=== PATIENT | female | born 2000 | race Caucasian/White ===

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

== ENCOUNTER 2020-04-28 06:59 | Emergency (ER) | payer SELFPAY ==
[2020-04-28 07:35] LABS: Absolute Lymphocytes (CBC) 1.3 K/uL (0.7-4.9); Basophils % 0.4 % (0-1.3); Hematocrit 35.2 % (36.0-45.0); Lymphocytes % 17.8 % (15.3-44.8); MPV 9.5 fL (7.6-11.3)
[2020-04-28 07:41] LABS: Urine Blood TRACE (NEG); Urine Glucose NEGATIVE (NEG); Urine Protein 2+ (NEG); Urine pH 5.5 (5.0-7.0)
[2020-04-28 07:52] LABS: ALT/SGPT 21 U/L (12-78); AST/SGOT 9 U/L (15-37); Albumin 3.5 g/dL (3.4-5.0); Alkaline Phosphatase 69 U/L (45-117); BUN Blood Urea Nitrogen 6 mg/dL (7-18); Bicarbonate 26 mmol/L (21-32); Bilirubin Direct 0.1 mg/dL (0-0.2); Bilirubin Total 0.3 mg/dL (0.2-1.0); Glucose Level 93 mg/dL (74-106); Lipase 45 U/L (73-393); Protein, Total 7.7 g/dL (6.4-8.2); Sodium Level 140 mmol/L (136-145)
[2020-04-28 09:00] LABS: Urine Bacteria <20 /HPF (<20); Urine Culture Reflex Order NOT NEEDED; Urine Mucus 2+ /HPF (NONE SEEN)
--- NOTE | 2020-04-28 09:01 | RAD REPORT ---
EXAM DESCRIPTION: CTAbdomen Pelvis W Contrast - 04/28/2020 7:49 am CLINICAL HISTORY: Abdominal pain. right sided abd pain COMPARISON: No comparisons TECHNIQUE: Biphasic CT imaging of the abdomen and pelvis was performed with 100 ml non-ionic IV cont rast. All CT scans are performed using dose optimization technique as appropriate and may include automated exposure control or mA/KV adjustment according to patient size. FINDINGS: The lung bases are clear. The liver, spleen, pancreas, adrenal glands and left kidney are within normal limits. Mild edema invo lves the right kidney. No hydronephrosis. No bowel obstruction, free air, intra-abdominal free fluid or abscess. The appendix is normal. No e vidence of significant lymphadenopathy. Mild pelvic free fluid. No suspicious bony findings. IMPRESSION: Mild right-sided pyelonephritis suspected.
--- NOTE | 2020-04-28 09:23 | ER ---
Nurse's Notes [facility] Name: Shani Villafana Age: 19 yrs Sex: Female : 2000 Arrival Date: 04/28/2020 Time: 07:03 Bed 5 Private MD: Diagnosis: Urinary tract infection, site not specified Presentation: 04/28 07:14 Chief complaint: Patient states: fever,low back pain radiating to RUQ X 3 days. Initial iw Sepsis Screen: Does the patient meet any 2 criteria? No. Patient's initial sepsis screen is negative. Does the patient have a suspected source of infection? No. Patient's initial sepsis screen is negative. Risk Assessment: Do you want to hurt yourself or someone else? Patient reports no desire to harm self or others. 07:14 Method Of Arrival: Ambulatory iw 07:14 Acuity: ЕКАТЕРИНА 3 iw 09:43 Coronavirus screen: Client denies travel out of the [place] in the last 14 days. At this jr10 time, the client does not indicate any symptoms associated with coronavirus-19. Ebola Screen: No symptoms or risks identified at this time. Onset of symptoms was April 25, 2020. 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 - Social history:: Smoking status: Patient denies any tobacco usage or history of. - Family history:: not pertinent. - Hospitalizations: : No recent hospitalization is reported. Screenin:34 Abuse screen: Denies threats or abuse. Denies injuries from another. Nutritional jr10 screening: No deficits noted. Tuberculosis screening: No symptoms or risk factors identified. Fall Risk None identified. Assessment: 07:31 General: Appears in no apparent distress. Behavior is calm, cooperative, appropriate jr10 for age. Pain: Complains of pain in right mid back, right low back and right lower quadrant Pain began Monday. Neuro: No deficits noted. Cardiovascular: No deficits noted. Respiratory: No deficits noted. Airway is patent Respiratory effort is even, unlabored, Respiratory pattern is regular, symmetrical. GI: Abdomen is non-distended, Bowel sounds present X 4 quads. Abd is soft Abdomen is tender to palpation in right lower quadrant Reports nausea, Patient currently denies diarrhea, vomiting, pt reports pain in right lower back that radiates to right lower abd that started on Monday; reports fever of 104.1 on Monday; denies dysuria, reports dark urine. : No deficits noted. : No deficits noted. No signs and/or symptoms were reported regarding the genitourinary system. EENT: No deficits noted. EENT: No signs and/or symptoms were reported regarding the EENT system. Derm: No deficits noted. No signs and/or symptoms reported regarding the dermatologic system. Musculoskeletal: No deficits noted. No signs and/or symptoms reported regarding the musculoskeletal system. 07:33 Reassessment: US at bedside. jr10 Vital Signs: 07:16 BP 117 / 82; Pulse 83; Resp 16; Temp 98.8; Pulse Ox 100% on R/A; Weight 49.9 kg; Height iw 5 ft. 4 in. (162.56 cm); 09:16 BP 110 / 93; Pulse 68; Resp 17; Pulse Ox 100% on R/A; jr10 07:16 Body Mass Index 18.88 (49.90 kg, 162.56 cm) iw ED Course: 07:03 Patient arrived in ED. mr 07:06 Juan Spears MD is Attending Physician. rn 07:07 Danyel Jacobs, RN is Primary Nurse. bp 07:16 Triage completed. iw 07:17 Arm band placed on. iw 07:34 Patient has correct armband on for positive identification. Pulse ox on. NIBP on. jr10 07:34 No provider procedures requiring assistance completed. Inserted saline lock: 20 gauge jr10 in right antecubital area, using aseptic technique. ,using aseptic technique. started via KJ, PCT Blood collected. IV is patent, is intact, Flushed. 07:49 CT Abd/Pelvis - IV Contrast Only In Process Unspecified. EDMS 08:06 US Abdomen Limited In Process Unspecified. EDMS 08:22 Primary Nurse role handed off by Danyel Jacobs, RN jr10 08:22 Mary Zarate, RN is Primary Nurse. jr10 09:41 IV discontinued, intact, bleeding controlled, No redness/swelling at site. Pressure jr10 dressing applied. Administered Medications: 09:41 Drug: Cipro 500 mg Route: PO; jr10 Outcome: 09:23 Discharge ordered by . rn 09:42 Discharged to home ambulatory. jr10 09:42 Condition: good 09:42 Discharge instructions given to patient, Instructed on discharge instructions, follow up and referral plans. Demonstrated understanding of instructions, follow-up care, medications, Prescriptions given X 1. 09:46 Patient left the ED. jr10 Signatures: Dispatcher [employer] Elizabeth Flores Irene, RN Juan Valente MD MD rn Peltier, Brian, RN Mary Mane, RN RN jr10 Corrections: (The following items were deleted from the chart) 07:45 07:34 Inserted saline lock: 22 gauge in right antecubital area, using aseptic jr10 technique. ,using aseptic technique. started via KJ, PCT Blood collected. IV is patent, is intact, Flushed jr10 09:46 09:43 Onset of symptoms was April 27, 2020 jr10 jr10
--- NOTE | 2020-04-28 09:23 | EDPHYS ---
Physician Documentation [facility] Name: Shani Villafana Age: 19 yrs Sex: Female : 2000 Arrival Date: 04/28/2020 Time: 07:03 Bed 5 Private MD: ED Physician Juan Spears HPI: 04/28 07:15 This 19 yrs old Female presents to ER via Unassigned with complaints of rn Abdominal Pain, Nausea, Fever. 07:15 The patient presents with abdominal pain in the right upper quadrant, right lower rn quadrant. Onset: The symptoms/episode began/occurred 2 day(s) ago. The symptoms do not radiate. Associated signs and symptoms: Pertinent positives: anorexia, fever, Pertinent negatives: nausea and vomiting, blood in stools, constipation, diarrhea, dysuria, fever, hematuria, palpitations, shortness of breath, vaginal discharge, vomiting. The symptoms are described as crampy, sharp. Modifying factors: The symptoms are alleviated by nothing, the symptoms are aggravated by movement, touching the area. Severity of pain: At its worst the pain was moderate in the emergency department the pain has improved. The patient has not experienced similar symptoms in the past. The patient has not recently seen a physician. REports 2 days of right sided abd pain, + fever, + decreased appetite, no vomiting/diarrhea/urinary symptoms/vaginal discharge. No trauma. Had baby 1 year ago, reports family hx of gallstones. . 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 - Social history:: Smoking status: Patient denies any tobacco usage or history of. - Family history:: not pertinent. - Hospitalizations: : No recent hospitalization is reported. ROS: 07:15 Constitutional: + fever Eyes: Negative for injury, pain, redness, and discharge, Neck: rn Negative for injury, pain, and swelling, Cardiovascular: Negative for chest pain, palpitations, and edema, Respiratory: Negative for shortness of breath, cough, wheezing, and pleuritic chest pain, Abdomen/GI: + abd pain : Negative for injury, bleeding, discharge, and swelling, MS/Extremity: Negative for injury and deformity, Skin: Negative for injury, rash, and discoloration, Neuro: Negative for headache, weakness, numbness, tingling, and seizure. Exam: 07:15 Constitutional: This is a well developed, well nourished patient who is awake, alert, rn and in no acute distress. Ambulatory. Head/Face: Normocephalic, atraumatic. Cardiovascular: Regular rate and rhythm. No pulse deficits. Respiratory: No increased work of breathing, no retractions or nasal flaring. Abdomen/GI: soft, mild RUQ and RLQ tenderness, no rebound Skin: Warm, dry MS/ Extremity: Pulses equal, no cyanosis. Neurovascular intact. Full, normal range of motion. Equal circumference. Neuro: Awake and alert, GCS 15 Vital Signs: 07:16 BP 117 / 82; Pulse 83; Resp 16; Temp 98.8; Pulse Ox 100% on R/A; Weight 49.9 kg; Height iw 5 ft. 4 in. (162.56 cm); 09:16 BP 110 / 93; Pulse 68; Resp 17; Pulse Ox 100% on R/A; jr10 07:16 Body Mass Index 18.88 (49.90 kg, 162.56 cm) iw MDM: 07:06 Patient medically screened. rn 09:20 Differential diagnosis: appendicitis, Endometriosis, non-specific abd pain, rn Pyelonephritis, Ureterolithiasis, urinary tract infection, ovarian cyst. Data reviewed: vital signs, nurses notes, lab test result(s), radiologic studies, CT scan, ultrasound, and as a result, I will discharge patient. Counseling: I had a detailed discussion with the patient and/or guardian regarding: the historical points, exam findings, and any diagnostic results supporting the discharge/admit diagnosis, lab results, radiology results, the need for outpatient follow up, to return to the emergency department if symptoms worsen or persist or if there are any questions or concerns that arise at home. Response to treatment: the patient's symptoms have mildly improved after treatment, and as a result, I will discharge patient. Special discussion: Based on the patient's Hx, exam, and Dx evaluation, there is no indication for emergent surgery or inpatient Tx. It is understood by the patient/guardian that if the Sx's persist or worsen they need to return immediately for re-evaluation. I discussed with the patient/guardian in detail that at this point there is no indication for admission to the hospital. It is understood, however, that if the symptoms persist or worsen the patient needs to return immediately for re-evaluation. ED course: CT and bloodwork no acute findings. Per radiology, CT shows normal appendix, mild pelvic free fluid, and possible pyelo. Patient reports increased urination frequency, will treat with abx and dc home. Story sounds more like ruptured ovarian cyst though, with pain worse yesterday and now improving, given right sided symptoms, and mild free fluid. Given bloodwork results and ct results. . 04/28 07:14 Order name: Basic Metabolic Panel; Complete Time: 08:07 rn 04/28 07:14 Order name: CBC with Diff; Complete Time: 08:07 rn 04/28 07:14 Order name: Hepatic Function; Complete Time: 08:07 rn 04/28 07:14 Order name: Lipase; Complete Time: 08:07 rn 04/28 07:14 Order name: Urine Microscopic Only; Complete Time: 09:14 rn 04/28 07:36 Order name: Urine Dipstick--Ancillary (enter results) bd 04/28 07:14 Order name: IV Saline Lock; Complete Time: 07:36 rn 04/28 07:14 Order name: CT Abd/Pelvis - IV Contrast Only; Complete Time: 09:14 rn 04/28 07:14 Order name: US Abdomen Limited rn 04/28 07:36 Order name: Urine --Ancillary (enter results) bd 04/28 07:37 Order name: Urine Dipstick-Ancillary; Complete Time: 08:07 EDSD 04/28 07:37 Order name: Urine --Ancillary; Complete Time: 08:07 EDSD 04/28 08:00 Order name: CREATININE WHOLE BLOOD; Complete Time: 08:07 EDSD 04/28 07:14 Order name: Labs collected and sent; Complete Time: 07:36 rn 04/28 07:14 Order name: Urine Test (obtain specimen); Complete Time: 07:36 rn 04/28 07:14 Order name: Urine Dipstick-Ancillary (obtain specimen); Complete Time: 07:36 rn Administered Medications: 09:41 Drug: Cipro 500 mg Route: PO; jr10 Disposition: 04/28/20 09:23 Discharged to Home. Impression: Urinary tract infection, site not specified. - Condition is Stable. - Discharge Instructions: Ovarian Cyst, Urinary Tract Infection, Adult. - Prescriptions for Cipro 500 mg Oral Tablet - take 1 tablet by ORAL route every 12 hours for 10 days; 20 tablet. - Medication Reconciliation Form, Thank You Letter, Antibiotic Education, Prescription Opioid Use form. - Follow up: Private Physician; When: As needed; Reason: Recheck today's complaints, Re-evaluation by your physician. - Problem is new. - Symptoms have improved. Signatures: Dispatcher [employer] EDMS Yesika Villafana RN RN iw Nieto, Roman, MD MD rn Rivera, Jessica, RN RN jr10 Corrections: (The following items were deleted from the chart) 09:46 09:23 04/28/2020 09:23 Discharged to Home. Impression: Urinary tract infection, site jr10 not specified. Condition is Stable. Forms are Medication Reconciliation Form, Thank You Letter, Antibiotic Education, Prescription Opioid Use. Follow up: Private Physician; When: As needed; Reason: Recheck today's complaints, Re-evaluation by your physician. Problem is new. Symptoms have improved. rn
--- NOTE | 2020-04-28 09:32 | RAD REPORT ---
EXAM DESCRIPTION: US - Abdomen Exam Limited - 04/28/2020 8:06 am CLINICAL HISTORY: right sided abd pain Abdominal pain COMPARISON: No comparisons FINDINGS: The gallbladder demonstrates no gallstones. No pericholecystic fluid or gallbladder wall t hickening. The common bile duct is normal measuring 3 mm. The liver demonstrates no findings of intrahepatic biliary dilatation. IMPRESSION: Unremarkable examination.
[2020-04-28] MEDS ORDERED: CIPROFLOXACIN HCL 500 MG TAB ONE (09:43)
[2020-04-28 09:51] VITALS: TEMP 98.8; O2SAT 100
[2020-04-28 09:52] VITALS: BP 110/93
== END 2020-04-28 09:46 | disposition home or self-care (01) ==
LOC: ER 06:59
DX: N39.0 Urinary tract infection, site not specified (principal)
CPT/HCPCS: 36415; 74177; 76705; 80048; 80076; 81003; 81015; 81025; 82565; 83690; 85025; 99284; Q9967

== ENCOUNTER 2020-10-02 17:32 | Emergency (ER) | payer SELFPAY ==
[2020-10-02] MEDS ORDERED: ACETAMINOPHEN 325 MG TABLET ONE (18:30)
--- NOTE | 2020-10-02 19:50 | EDPHYS ---
Physician Documentation [facility] Name: Shani Villafana Age: 20 yrs Sex: Female : 2000 Arrival Date: 10/02/2020 Time: 17:34 Bed Waiting Private MD: ED Physician Jesus Agosto HPI: 10/02 19:44 This 20 yrs old Female presents to ER via Ambulatory with complaints of Sore mh7 Throat. 19:44 The patient presents with sore throat. mh7 19:44 The patient describes throat pain as constant. Onset: The symptoms/episode mh7 began/occurred last night. Severity of symptoms: At their worst the symptoms were moderate, last night, in the emergency department the symptoms have improved, markedly. Modifying factors: The symptoms are alleviated by over the counter medications, Tylenol, the symptoms are aggravated by nothing, Patient's oral intake status: good. Associated signs and symptoms: Pertinent positives: fever, Sore throat Pertinent negatives chest pain, chills, cough, diarrhea, dysphagia, earache, flu-like symptoms, headache, nausea, rhinorrhea, shortness of breath, vomiting. 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 - Social history:: Smoking status: Patient denies any tobacco usage or history of. ROS: 19:44 Eyes: Negative for injury, pain, redness, and discharge, Neck: Negative for injury, mh7 pain, and swelling, Cardiovascular: Negative for chest pain, palpitations, and edema, Respiratory: Negative for shortness of breath, cough, wheezing, and pleuritic chest pain, Abdomen/GI: Negative for abdominal pain, nausea, vomiting, diarrhea, and constipation, Back: Negative for injury and pain, : Negative for injury, bleeding, discharge, and swelling, MS/Extremity: Negative for injury and deformity, Skin: Negative for injury, rash, and discoloration, Neuro: Negative for headache, weakness, numbness, tingling, and seizure, Psych: Negative for depression, anxiety, suicide ideation, homicidal ideation, and hallucinations, Allergy/Immunology: Negative for hives, rash, and allergies, Endocrine: Negative for neck swelling, polydipsia, polyuria, polyphagia, and marked weight changes, Hematologic/Lymphatic: Negative for swollen nodes, abnormal bleeding, and unusual bruising. Exam: 19:44 Constitutional: This is a well developed, well nourished patient who is awake, alert, mh7 and in no acute distress. Head/Face: Normocephalic, atraumatic. Eyes: Pupils equal round and reactive to light, extra-ocular motions intact. Lids and lashes normal. Conjunctiva and sclera are non-icteric and not injected. Cornea within normal limits. Periorbital areas with no swelling, redness, or edema. 19:44 Neck: Trachea midline, no thyromegaly or masses palpated, and no cervical lymphadenopathy. Supple, full range of motion without nuchal rigidity, or vertebral point tenderness. No Meningismus. Chest/axilla: Normal chest wall appearance and motion. Nontender with no deformity. No lesions are appreciated. Cardiovascular: Regular rate and rhythm with a normal S1 and S2. No gallops, murmurs, or rubs. Normal PMI, no JVD. No pulse deficits. Respiratory: Lungs have equal breath sounds bilaterally, clear to auscultation and percussion. No rales, rhonchi or wheezes noted. No increased work of breathing, no retractions or nasal flaring. Abdomen/GI: Soft, non-tender, with normal bowel sounds. No distension or tympany. No guarding or rebound. No evidence of tenderness throughout. Back: No spinal tenderness. No costovertebral tenderness. Full range of motion. Skin: Warm, dry with normal turgor. Normal color with no rashes, no lesions, and no evidence of cellulitis. MS/ Extremity: Pulses equal, no cyanosis. Neurovascular intact. Full, normal range of motion. Neuro: Awake and alert, GCS 15, oriented to person, place, time, and situation. Cranial nerves II-XII grossly intact. Motor strength 5/5 in all extremities. Sensory grossly intact. Cerebellar exam normal. Normal gait. Psych: Awake, alert, with orientation to person, place and time. Behavior, mood, and affect are within normal limits. 19:44 ENT: External ear(s): are unremarkable, Ear canal(s): are normal, TM's: are normal, Nose: is normal, Mouth: is normal, Posterior pharynx: Airway: normal, Tonsils: bilaterally enlarged, with erythema, with exudate, Uvula: normal, swelling, is not appreciated, erythema, that is moderate, exudate, that is moderate, peritonsillar mass, is not appreciated, pooling of secretions, is not appreciated, Dental exam: normal, Voice: is normal, Breath odor: is normal. Vital Signs: 18:06 BP 117 / 56; Pulse 111; Resp 16 S; Temp 97.2(TE); Pulse Ox 99% on R/A; Weight 48.08 kg ca1 (R); Height 5 ft. 4 in. (162.56 cm) (R); Pain 0/10; 18:11 Temp 101.4(O); ca1 19:37 BP 110 / 65; Pulse 94; Resp 16 S; Temp 98.8(O); Pulse Ox 99% on R/A; ca1 18:06 Body Mass Index 18.19 (48.08 kg, 162.56 cm) ca1 MDM: 19:44 Differential diagnosis: cocksackie virus, group A strep tonsillitis, influenza, mh7 laryngitis, pharyngitis, tonsillitis, viral syndrome. Data reviewed: vital signs, nurses notes, lab test result(s), Rapid Strep. Data interpreted: Pulse oximetry: on room air is 99 %. Interpretation: normal. Counseling: I had a detailed discussion with the patient and/or guardian regarding: the historical points, exam findings, and any diagnostic results supporting the discharge/admit diagnosis, lab results, the need for outpatient follow up, to return to the emergency department if symptoms worsen or persist or if there are any questions or concerns that arise at home. Response to treatment: the patient's symptoms have markedly improved after treatment. 19:49 Patient medically screened. mh7 10/02 18:08 Order name: Strep ca1 10/02 18:09 Order name: Group A Streptococcus Rapid Sc; Complete Time: 19:43 EDMS Administered Medications: 18:16 Drug: Tylenol 650 mg Route: PO; ca1 19:37 Follow up: Response: No adverse reaction; Temperature is decreased ca1 19:46 Drug: Bicillin L-A 1.2 million units Route: IM; Site: left gluteus; ca1 20:02 Follow up: Response: No adverse reaction ca1 Disposition: 10/02/20 19:49 Discharged to Home. Impression: Strep Pharyngitis. - Condition is Stable. - Discharge Instructions: Strep Throat, [id number]. - Medication Reconciliation Form, Thank You Letter, Antibiotic Education, Prescription Opioid Use form. - Follow up: Private Physician; When: 1 - 2 days; Reason: Worsening of condition, Recheck today's complaints, Continuance of care, Re-evaluation by your physician. - Problem is new. - Symptoms have improved. Signatures: Dispatcher [employer] EDMS Brisa Barrios RN RN ca1 Jesus Agosto MD MD mh7 Corrections: (The following items were deleted from the chart) 20:02 19:49 10/02/2020 19:49 Discharged to Home. Impression: Strep Pharyngitis. Condition is ca1 Stable. Forms are Medication Reconciliation Form, Thank You Letter, Antibiotic Education, Prescription Opioid Use. Follow up: Private Physician; When: 1 - 2 days; Reason: Worsening of condition, Recheck today's complaints, Continuance of care, Re-evaluation by your physician. Problem is new. Symptoms have improved. mh7
--- NOTE | 2020-10-02 19:50 | ER ---
Nurse's Notes [facility] Name: Shani Villafana Age: 20 yrs Sex: Female : 2000 Arrival Date: 10/02/2020 Time: 17:34 Bed Waiting Private MD: Diagnosis: Strep Pharyngitis Presentation: 10/02 18:06 Chief complaint: Patient states: Sore throat with pus pockets since last night. Fever ca1 last night. Coronavirus screen: Client denies travel out of the [place] in the last 14 days. fever, sore throat, Client presents with at least one sign or symptom that may indicate coronavirus-19. Standard/surgical mask placed on the client. Provider contacted for isolation considerations. Ebola Screen: Patient negative for fever greater than or equal to 101.5 degrees Fahrenheit, and additional compatible Ebola Virus Disease symptoms Patient denies exposure to infectious person. Patient denies travel to an Ebola-affected area in the 21 days before illness onset. No symptoms or risks identified at this time. Initial Sepsis Screen: Does the patient meet any 2 criteria? No. Patient's initial sepsis screen is negative. Does the patient have a suspected source of infection? No. Patient's initial sepsis screen is negative. Risk Assessment: Do you want to hurt yourself or someone else? Patient reports no desire to harm self or others. Onset of symptoms was October 01, 2020. 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 - Social history:: Smoking status: Patient denies any tobacco usage or history of. Screenin:15 Abuse screen: Denies threats or abuse. Denies injuries from another. Nutritional ca1 screening: No deficits noted. Tuberculosis screening: No symptoms or risk factors identified. Fall Risk None identified. Assessment: 18:15 General: Appears in no apparent distress. comfortable, Behavior is calm, cooperative, ca1 appropriate for age. General: Reports fever for 1-2 days. Pain: Complains of pain in throat Pain currently is 5 out of 10 on a pain scale. Pain began 1 day ago. Neuro: Level of Consciousness is awake, alert, obeys commands, Oriented to person, place, time, situation. Respiratory: Airway is patent Respiratory effort is even, unlabored, Breath sounds are clear bilaterally. EENT: Throat is reddened has patchy exudate bilaterally. Derm: Skin is intact, is healthy with good turgor, Skin is pink, warm \T\ dry. Musculoskeletal: Circulation, motion, and sensation intact. Capillary refill < 3 seconds. Vital Signs: 18:06 BP 117 / 56; Pulse 111; Resp 16 S; Temp 97.2(TE); Pulse Ox 99% on R/A; Weight 48.08 kg ca1 (R); Height 5 ft. 4 in. (162.56 cm) (R); Pain 0/10; 18:11 Temp 101.4(O); ca1 19:37 BP 110 / 65; Pulse 94; Resp 16 S; Temp 98.8(O); Pulse Ox 99% on R/A; ca1 18:06 Body Mass Index 18.19 (48.08 kg, 162.56 cm) ca1 ED Course: 17:34 Patient arrived in ED. as 18:08 Triage completed. ca1 18:08 Arm band placed on right wrist. ca1 18:10 Strep Sent. ca1 18:15 Patient has correct armband on for positive identification. ca1 19:43 Jesus Agosto MD is Attending Physician. 7 20:02 No provider procedures requiring assistance completed. Patient did not have IV access ca1 during this emergency room visit. Administered Medications: 18:16 Drug: Tylenol 650 mg Route: PO; ca1 19:37 Follow up: Response: No adverse reaction; Temperature is decreased ca1 19:46 Drug: Bicillin L-A 1.2 million units Route: IM; Site: left gluteus; ca1 20:02 Follow up: Response: No adverse reaction ca1 Outcome: 19:49 Discharge ordered by . mh7 20:02 Discharged to home ambulatory. ca1 20:02 Condition: stable 20:02 Discharge instructions given to patient, Instructed on discharge instructions, follow up and referral plans. Demonstrated understanding of instructions, follow-up care. 20:02 Patient left the ED. ca1 Signatures: Melisa Saunders Cheryl, RN RN ca1 Jesus Agosto MD MD mh7 Corrections: (The following items were deleted from the chart) 18:37 18:06 Initial Sepsis Screen: Does the patient meet any 2 criteria? No. Patient's ca1 initial sepsis screen is negative. Does the patient have a suspected source of infection? No. Patient's initial sepsis screen is negative. ca1
[2020-10-02] MEDS ORDERED: PEN G BENZ LA 1.2MU/2ML SYRINGE IM ONE (19:59)
[2020-10-02 20:27] VITALS: O2SAT 99
[2020-10-02 20:29] VITALS: BP 110/65; TEMP 98.8
== END 2020-10-02 20:02 | disposition home or self-care (01) ==
LOC: ER 17:32
DX: J02.0 Streptococcal pharyngitis (principal)
CPT/HCPCS: 87081; 96372; 99283; J0561

== ENCOUNTER 2020-12-02 15:55 | Emergency (ER) | payer SELFPAY ==
--- NOTE | 2020-12-02 18:12 | ER ---
Nurse's Notes [facility] Name: Shani Villafana Age: 20 yrs Sex: Female : 2000 Arrival Date: 12/02/2020 Time: 15:57 Bed Waiting Private MD: Diagnosis: Otitis media, unspecified, left ear;Other otitis externa, left ear Presentation: 12/02 16:23 Chief complaint: Patient states: Can't hear on my L ear x 1 week. Started with pain, ca1 now it's not hurting but I just can't hear. Tried ear drops no relief. Denies injury the L ear. Coronavirus screen: Client denies travel out of the [place] in the last 14 days. At this time, the client does not indicate any symptoms associated with coronavirus-19. Ebola Screen: Patient negative for fever greater than or equal to 101.5 degrees Fahrenheit, and additional compatible Ebola Virus Disease symptoms Patient denies exposure to infectious person. Patient denies travel to an Ebola-affected area in the 21 days before illness onset. No symptoms or risks identified at this time. Initial Sepsis Screen: Does the patient meet any 2 criteria? No. Patient's initial sepsis screen is negative. Does the patient have a suspected source of infection? No. Patient's initial sepsis screen is negative. Risk Assessment: Do you want to hurt yourself or someone else? Patient reports no desire to harm self or others. Onset of symptoms was December 02, 2020. 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 - Social history:: Smoking status: Patient denies any tobacco usage or history of. Screenin:15 Abuse screen: Denies threats or abuse. Denies injuries from another. Nutritional ca1 screening: No deficits noted. Tuberculosis screening: No symptoms or risk factors identified. Fall Risk None identified. Assessment: 18:15 General: Appears in no apparent distress. comfortable, Behavior is calm, cooperative, ca1 appropriate for age. Pain: Denies pain. Neuro: Level of Consciousness is awake, alert, obeys commands, Oriented to person, place, time, situation. EENT: Ear canal clear on left ear and right ear Reports decreased hearing in left ear. Derm: Skin is intact, is healthy with good turgor, Skin is pink, warm \T\ dry. Musculoskeletal: Circulation, motion, and sensation intact. Capillary refill < 3 seconds. Vital Signs: 16:23 BP 121 / 65; Pulse 90; Resp 16 S; Temp 97.9(TE); Pulse Ox 100% on R/A; Weight 48.53 kg ca1 (R); Height 5 ft. 4 in. (162.56 cm) (R); Pain 0/10; 18:15 BP 116 / 71; Pulse 86; Resp 16 S; Pulse Ox 100% on R/A; ca1 16:23 Body Mass Index 18.37 (48.53 kg, 162.56 cm) ca1 ED Course: 15:57 Patient arrived in ED. as 16:25 Triage completed. ca1 16:26 Arm band placed on right wrist. ca1 18:10 Lara Sullivan FNP-C is [facility]. kb 18:10 Phil Cortes MD is Attending Physician. kb 18:15 Brisa Barrios RN is Primary Nurse. ca1 18:15 Patient has correct armband on for positive identification. ca1 18:16 No provider procedures requiring assistance completed. Patient did not have IV access ca1 during this emergency room visit. Administered Medications: No medications were administered Outcome: 18:11 Discharge ordered by . kb 18:16 Discharged to home ambulatory. ca1 18:16 Condition: stable 18:16 Discharge instructions given to patient, Instructed on discharge instructions, follow up and referral plans. Demonstrated understanding of instructions, follow-up care, medications, Prescriptions given X 2. 18:18 Patient left the ED. ca1 Signatures: Lara Sullivan FNP-C FNP-Melisa Lu as Brisa Barrios, RN RN ca1
--- NOTE | 2020-12-02 18:12 | EDPHYS ---
Physician Documentation [facility] Name: Shani Villafana Age: 20 yrs Sex: Female : 2000 Arrival Date: 12/02/2020 Time: 15:57 Bed Waiting Private MD: ED Physician Phil Cortes HPI: 12/02 18:48 This 20 yrs old Female presents to ER via Ambulatory with complaints of Ear kb Pain. 18:48 The patient presents with hearing loss, pain. The complaints affect the left ear. kb Onset: The symptoms/episode began/occurred last week. Modifying factors: The symptoms are alleviated by nothing, the symptoms are aggravated by nothing. Associated signs and symptoms: The patient has no apparent associated signs or symptoms. Severity of symptoms: At their worst the symptoms were moderate in the emergency department the symptoms are unchanged. The patient has not experienced similar symptoms in the past. The patient has not recently seen a physician. Pt reports left ear started hurting a week ago. States now she cannot hear out of left ear. 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 - Social history:: Smoking status: Patient denies any tobacco usage or history of. ROS: 18:46 Constitutional: Negative for fever, chills, and weight loss, Respiratory: Negative for kb shortness of breath, cough, wheezing, and pleuritic chest pain, Skin: Negative for injury, rash, and discoloration, Neuro: Negative for headache, weakness, numbness, tingling, and seizure. 18:46 ENT: Positive for ear pain, hearing loss. Exam: 18:47 Constitutional: This is a well developed, well nourished patient who is awake, alert, kb and in no acute distress. Head/Face: Normocephalic, atraumatic. Respiratory: Respirations even and unlabored. No increased work of breathing, no retractions or nasal flaring. MS/ Extremity: Pulses equal, no cyanosis. Neurovascular intact. Full, normal range of motion. Neuro: Awake and alert, GCS 15, oriented to person, place, time, and situation. Moves all extremities. Normal gait. 18:47 ENT: Ear canal(s): erythema, that is moderate, of the left canal, swelling, that is moderate, of the left canal, TM's: bulging, on the left, erythema, that is mild, on the left. Vital Signs: 16:23 BP 121 / 65; Pulse 90; Resp 16 S; Temp 97.9(TE); Pulse Ox 100% on R/A; Weight 48.53 kg ca1 (R); Height 5 ft. 4 in. (162.56 cm) (R); Pain 0/10; 18:15 BP 116 / 71; Pulse 86; Resp 16 S; Pulse Ox 100% on R/A; ca1 16:23 Body Mass Index 18.37 (48.53 kg, 162.56 cm) ca1 MDM: 18:10 Data reviewed: vital signs, nurses notes. Data interpreted: Pulse oximetry: on room air kb is 100 %. Interpretation: normal. Counseling: I had a detailed discussion with the patient and/or guardian regarding: the historical points, exam findings, and any diagnostic results supporting the discharge/admit diagnosis, the need for outpatient follow up, an ENT specialist, to return to the emergency department if symptoms worsen or persist or if there are any questions or concerns that arise at home. 18:11 Patient medically screened. kb Administered Medications: No medications were administered Disposition: 12/03 08:07 Co-signature as Attending Physician, Phil Cortes MD I agree with the assessment and kdr plan of care. Disposition: 12/02/20 18:11 Discharged to Home. Impression: Otitis media, unspecified, left ear, Other otitis externa, left ear. - Condition is Stable. - Discharge Instructions: Otitis Externa, [id number], Otitis Media, Adult, [id number]. - Prescriptions for Amoxicillin 875 mg Oral Tablet - take 1 tablet by ORAL route every 12 hours for 10 days; 20 tablet. Ciprodex 0.3- 0.1 % Otic Drops, Suspension - instill 4 drop by OTIC route every 12 hours for 7 days , for ears ONLY; 1 Container. - Medication Reconciliation Form, Thank You Letter, Antibiotic Education, Prescription Opioid Use form. - Follow up: Emergency Department; When: As needed; Reason: Worsening of condition. Follow up: Private Physician; When: 2 - 3 days; Reason: Recheck today's complaints, Continuance of care, Re-evaluation by your physician. Signatures: Lara Sullivan FNP-C FNP-Phil Sims MD MD [facility] Brisa Barrios RN RN ca1 Corrections: (The following items were deleted from the chart) 12/02 18:18 18:11 12/02/2020 18:11 Discharged to Home. Impression: Otitis media, unspecified, left ca1 ear; Other otitis externa, left ear. Condition is Stable. Forms are Medication Reconciliation Form, Thank You Letter, Antibiotic Education, Prescription Opioid Use. Follow up: Emergency Department; When: As needed; Reason: Worsening of condition. Follow up: Private Physician; When: 2 - 3 days; Reason: Recheck today's complaints, Continuance of care, Re-evaluation by your physician. kb
[2020-12-02 19:14] VITALS: TEMP 97.9; O2SAT 100
[2020-12-02 19:16] VITALS: BP 116/71
== END 2020-12-02 18:18 | disposition home or self-care (01) ==
LOC: ER 15:55
DX: H66.92 Otitis media, unspecified, left ear (principal); H60.8X2 Other otitis externa, left ear
CPT/HCPCS: 99282

== ENCOUNTER 2021-05-03 14:27 | Emergency (ER) | payer SELFPAY ==
[2021-05-03 15:25] LABS: Urine Specific Gravity/Preg >1.030 (1.005-1.030)
[2021-05-03 16:28] LABS: Urine Bacteria <20 /HPF (<20); Urine Mucus MOD /HPF (NONE SEEN); Urine RBC NONE SEEN /HPF (NONE SEEN)
--- NOTE | 2021-05-03 16:51 | ER ---
Nurse's Notes [facility] Name: Shani Villafana Age: 20 yrs Sex: Female : 2000 Arrival Date: 05/03/2021 Time: 14:33 Bed 12 Private MD: Diagnosis: Candidiasis of vulva and vagina Presentation: 05/03 14:59 Chief complaint: Patient states: vaginal itching and burning x 2 days. Coronavirus kg screen: Client denies travel out of the [place] in the last 14 days. At this time, unable to obtain information related to travel outside the [place] At this time, the client does not indicate any symptoms associated with coronavirus-19. Ebola Screen: Patient negative for fever greater than or equal to 101.5 degrees Fahrenheit, and additional compatible Ebola Virus Disease symptoms Patient denies exposure to infectious person. Patient denies travel to an Ebola-affected area in the 21 days before illness onset. Initial Sepsis Screen: Does the patient meet any 2 criteria? No. Patient's initial sepsis screen is negative. Does the patient have a suspected source of infection? No. Patient's initial sepsis screen is negative. Risk Assessment: Do you want to hurt yourself or someone else? Patient reports no desire to harm self or others. Onset of symptoms was May 01, 2021. 14:59 Method Of Arrival: Ambulatory kg 14:59 Acuity: ЕКАТЕРИНА 4 kg Triage Assessment: 15:04 General: Appears in no apparent distress. Behavior is calm, cooperative, appropriate kg for age, quiet. Pain: Complains of pain in vaginal Quality of pain is described as itching, burning. 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 - Social history:: Smoking status: Patient denies any tobacco usage or history of. Patient uses alcohol, weekly. Screenin:07 Abuse screen: Denies threats or abuse. Denies injuries from another. Nutritional kg screening: No deficits noted. Tuberculosis screening: No symptoms or risk factors identified. Fall Risk None identified. Assessment: 17:02 General: Appears in no apparent distress. comfortable, Behavior is calm, cooperative. ss Neuro: Level of Consciousness is awake, alert, obeys commands, Oriented to person, place, time, situation. Cardiovascular: Capillary refill < 3 seconds is brisk in bilateral fingers. Respiratory: Airway is patent Respiratory effort is even, unlabored, Respiratory pattern is regular, symmetrical. EENT: Nares are clear Throat is clear. Derm: Skin is intact, is healthy with good turgor, Skin is pink, warm \T\ dry. normal. Musculoskeletal: Circulation, motion, and sensation intact. Range of motion: intact in all extremities, Swelling absent. Vital Signs: 14:59 BP 111 / 75; Pulse 68; Resp 18; Temp 98(O); Pulse Ox 100% on R/A; Weight 49.9 kg; kg Height 5 ft. 4 in. (162.56 cm) (R); Pain 5/10; 14:59 Body Mass Index 18.88 (49.90 kg, 162.56 cm) kg ED Course: 14:33 Patient arrived in ED. ds1 14:53 [facility] kb 14:53 Juan Spears MD is Attending Physician. kb 15:04 Triage completed. kg 15:07 Patient has correct armband on for positive identification. kg 15:07 No provider procedures requiring assistance completed. kg 16:51 Chelsea Byrd, AYESHA is Primary Nurse. ss 17:02 Patient did not have IV access during this emergency room visit. ss Administered Medications: 17:02 Drug: DiFLUcan (fluconazole) 100 mg Route: PO; ss 17:05 Follow up: Response: No adverse reaction; Medication administered at discharge. ss Outcome: 16:50 Discharge ordered by . kb 17:02 Discharged to home ambulatory. ss 17:02 Condition: good 17:02 Discharge instructions given to patient, Instructed on discharge instructions, follow up and referral plans. Demonstrated understanding of instructions, follow-up care. 17:05 Patient left the ED. ss Signatures: Lara Sullivan FNP-C FNP-Patt Mcdaniel ds1 Chelsea Byrd RN RN ss Audrey Rebolledo RN RN kg
--- NOTE | 2021-05-03 16:51 | EDPHYS ---
Physician Documentation [facility] Name: Shani Villafana Age: 20 yrs Sex: Female : 2000 Arrival Date: 05/03/2021 Time: 14:33 Bed 12 Private MD: ED Physician Juan Spears HPI: 05/03 16:15 This 20 yrs old Female presents to ER via Ambulatory with complaints of kb Vaginal Issue. 16:15 The patient presents with vaginal itching. Onset: The symptoms/episode began/occurred 2 kb day(s) ago. Modifying factors: The symptoms are alleviated by nothing, the symptoms are aggravated by nothing. Associated signs and symptoms: Pertinent positives: vaginal itching, Pertinent negatives: vaginal discharge. Severity of symptoms: At their worst the symptoms were moderate, in the emergency department the symptoms are unchanged. The patient has not experienced similar symptoms in the past. The patient has not recently seen a physician. 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 - Social history:: Smoking status: Patient denies any tobacco usage or history of. Patient uses alcohol, weekly. ROS: 16:15 Positive for vaginal itching, Negative for urinary symptoms, vaginal bleeding, kb vaginal discharge. 16:15 Constitutional: Negative for fever, chills, and weight loss. 16:15 All other systems are negative. Exam: 16:15 Constitutional: This is a well developed, well nourished patient who is awake, alert, kb and in no acute distress. Head/Face: Normocephalic, atraumatic. ENT: Moist Mucous membranes Respiratory: Respirations even and unlabored. No increased work of breathing, no retractions or nasal flaring. Skin: Warm, dry with normal turgor. Normal color. MS/ Extremity: Pulses equal, no cyanosis. Neurovascular intact. Full, normal range of motion. Neuro: Awake and alert, GCS 15, oriented to person, place, time, and situation. Moves all extremities. Normal gait. Psych: Awake, alert, with orientation to person, place and time. Behavior, mood, and affect are within normal limits. Vital Signs: 14:59 BP 111 / 75; Pulse 68; Resp 18; Temp 98(O); Pulse Ox 100% on R/A; Weight 49.9 kg; kg Height 5 ft. 4 in. (162.56 cm) (R); Pain 5/10; 14:59 Body Mass Index 18.88 (49.90 kg, 162.56 cm) kg MDM: 15:04 Patient medically screened. kb 16:14 Data reviewed: vital signs, nurses notes. Data interpreted: Pulse oximetry: on room air kb is 100 %. Interpretation: normal. Counseling: I had a detailed discussion with the patient and/or guardian regarding: the historical points, exam findings, and any diagnostic results supporting the discharge/admit diagnosis, lab results, the need for outpatient follow up, an OB/Gyne specialist, to return to the emergency department if symptoms worsen or persist or if there are any questions or concerns that arise at home. 05/03 15:04 Order name: Urine Microscopic Only kb 05/03 15:05 Order name: Urine Microscopic Only; Complete Time: 16:28 EDMS 05/03 15:04 Order name: Urine Dipstick-Ancillary (obtain specimen); Complete Time: 16:07 kb 05/03 15:04 Order name: Urine Test (obtain specimen); Complete Time: 16:07 kb 05/03 15:22 Order name: Urine --Ancillary (enter results); Complete Time: 15:32 bd Administered Medications: 17:02 Drug: DiFLUcan (fluconazole) 100 mg Route: PO; ss 17:05 Follow up: Response: No adverse reaction; Medication administered at discharge. Disposition: 17:29 Co-signature as Attending Physician, Juan Spears MD I agree with the assessment and rn plan of care. Attestation: The patient's history, exam findings, diagnostics, and a summary of any interventions or procedures was reviewed in detail with Lara ALMEIDA. Disposition Summary: 05/03/21 16:50 Discharge Ordered Location: Home kb Condition: Stable kb Diagnosis - Candidiasis of vulva and vagina kb Followup: kb - With: Emergency Department - When: As needed - Reason: Worsening of condition Followup: kb - With: Private Physician - When: 2 - 3 days - Reason: Recheck today's complaints, Continuance of care, Re-evaluation by your physician Discharge Instructions: - Discharge Summary Sheet kb - Vaginal Yeast Infection, Adult kb Forms: - Medication Reconciliation Form kb - Thank You Letter kb - Antibiotic Education kb - Prescription Opioid Use kb Signatures: Dispatcher [employer] EDLara Be, MATE CHIEF-C MACARIO-Juan Alonso MD MD rn Smirch, Shelby, RN RN ss Audrey Rebolledo RN RN kg
[2021-05-03 17:11] VITALS: BP 111/75; TEMP 98; O2SAT 100
[2021-05-03] MEDS ORDERED: FLUCONAZOLE 100 MG TAB ONE (17:18)
[2021-05-06 14:51] LABS: Urine Blood Trace-lysed (Negative); Urine Glucose Negative (Negative); Urine Protein Negative (Negative); Urine Specific Gravity >=1.030 (1.005-1.030)
== END 2021-05-03 17:05 | disposition home or self-care (01) ==
LOC: ER 14:27
DX: B37.3 Candidiasis of vulva and vagina (principal)
CPT/HCPCS: 81003; 81015; 81025; 99283

== ENCOUNTER 2021-09-06 21:26 | Emergency (ER) | payer OTHER, SELFPAY ==
[2021-09-06 22:57] LABS: SARS-COV-2 RT PCR POSITIVE (NEGATIVE)
--- NOTE | 2021-09-07 00:26 | EDPHYS ---
Physician Documentation [facility] Name: Shani iVllafana Age: 20 yrs Sex: Female : 2000 Arrival Date: 09/06/2021 Time: 21:28 Bed 14 Private MD: ED Physician Anselmo Andrews HPI: 09/07 00:18 This 20 yrs old Female presents to ER via Ambulatory with complaints of Covid+, pkl Shortness Of Breath, Fever. 00:18 The patient or guardian reports cough, described as mild, with no sputum. Onset: The pkl symptoms/episode began/occurred this morning. Associated signs and symptoms: Pertinent positives: fever, body aches. 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 - Social history:: Smoking status: unknown. ROS: 09/07 00:18 Eyes: Negative for injury, pain, redness, and discharge. pkl ENT: Positive for nasal discharge, ears popping. Neck: Negative for stiffness. Cardiovascular: Negative for chest pain. Respiratory: Positive for cough, with no reported sputum. Abdomen/GI: Negative for abdominal pain, nausea, vomiting, and diarrhea. Back: Negative for injury or acute deformity, acute changes. : Negative for urinary symptoms. MS/extremity: Negative for acute changes. Skin: Negative for rash. Neuro: Negative for altered mental status. Exam: 00:18 Head/Face: Normocephalic, atraumatic. Eyes: Pupils equal round and reactive to light, pkl extra-ocular motions intact. Lids and lashes normal. Conjunctiva and sclera are non-icteric and not injected. Cornea within normal limits. Periorbital areas with no swelling, redness, or edema. ENT: Nares patent. No nasal discharge, no septal abnormalities noted. Tympanic membranes are normal and external auditory canals are clear. Oropharynx with no redness, swelling, or masses, exudates, or evidence of obstruction, uvula midline. Mucous membranes moist. Neck: Trachea midline, no thyromegaly or masses palpated, and no cervical lymphadenopathy. Supple, full range of motion without nuchal rigidity, or vertebral point tenderness. No Meningismus. Chest/axilla: Normal chest wall appearance and motion. Nontender with no deformity. No lesions are appreciated. Cardiovascular: Regular rate and rhythm with a normal S1 and S2. No gallops, murmurs, or rubs. Normal PMI, no JVD. No pulse deficits. Respiratory: Lungs have equal breath sounds bilaterally, clear to auscultation and percussion. No rales, rhonchi or wheezes noted. No increased work of breathing, no retractions or nasal flaring. Abdomen/GI: Soft, non-tender, with normal bowel sounds. No distension or tympany. No guarding or rebound. No evidence of tenderness throughout. Back: No spinal tenderness. No costovertebral tenderness. Full range of motion. Skin: Warm, dry with normal turgor. Normal color with no rashes, no lesions, and no evidence of cellulitis. MS/ Extremity: Pulses equal, no cyanosis. Neurovascular intact. Full, normal range of motion. Neuro: Awake and alert, GCS 15, oriented to person, place, time, and situation. Cranial nerves II-XII grossly intact. Motor strength 5/5 in all extremities. Sensory grossly intact. Cerebellar exam normal. Normal gait. Vital Signs: 09/06 21:58 BP 116 / 70; Pulse 136; Resp 18 S; Temp 98.6(O); Pulse Ox 100% on R/A; Weight 51.71 kg bb (R); Height 5 ft. 4 in. (162.56 cm) (R); 09/07 00:25 BP 133 / 118; Pulse 81; Resp 18; Temp 98.0; Pulse Ox 98% 0 lpm ; sv1 09/06 21:58 Body Mass Index 19.57 (51.71 kg, 162.56 cm) bb MDM: 00:08 Patient medically screened. pkl 00:21 Data reviewed: vital signs, nurses notes, lab test result(s). pkl 00:22 ED course: Discussed lab results with patient. Advised quarantine for 10 days. Follow pkl up with PCP in 2 to 3 days. Return if necessary. Patient understood instructions. 09/06 22:02 Order name: COVID-19/FLU A+B/RSV (Document "Date of Onset" if Symptomatic) bb 09/06 22:02 Order name: COVID-19/FLU A+B/RSV; Complete Time: 00:21 EDMS Administered Medications: No medications were administered Disposition Summary: 09/07/21 00:25 Discharge Ordered Location: Home pkl Problem: new pkl Symptoms: are unchanged pkl Condition: Stable pkl Diagnosis - Positive Covid 19 pkl Followup: pkl - With: Private Physician - When: 2 - 3 days - Reason: Re-evaluation by your physician Discharge Instructions: - Discharge Summary Sheet pkl Forms: - Medication Reconciliation Form pkl - Thank You Letter pkl - Antibiotic Education pkl - Prescription Opioid Use pkl Prescriptions: - Zithromax Z-Jono 250 mg Oral Tablet - take 1 tablet by ORAL route as directed for 5 days Day 1 - take two (2) tablets pkl one time. Day 2, 3, 4 , 5 take one (1) tablet once daily.; 6 tablet; Refills: 0, Product Selection Permitted Signatures: Dispatcher [employer] EDAnselmo Hernandez MD MD pkl Flavia Rodríguez, RN RN bb
--- NOTE | 2021-09-07 00:26 | ER ---
Nurse's Notes [facility] Name: Shani Villafana Age: 20 yrs Sex: Female : 2000 Arrival Date: 09/06/2021 Time: 21:28 Bed 14 Private MD: Diagnosis: Positive Covid 19 Presentation: 09/06 21:58 Chief complaint: Patient states: she is having flu-like symptoms which started this bb morning with congestion, ears popping, and shortness of breath. Coronavirus screen: congestion, shortness of breath, Client presents with at least one sign or symptom that may indicate coronavirus-19. Standard/surgical mask placed on the client. Ebola Screen: No symptoms or risks identified at this time. Initial Sepsis Screen: Does the patient meet any 2 criteria? No. Patient's initial sepsis screen is negative. Does the patient have a suspected source of infection? No. Patient's initial sepsis screen is negative. Risk Assessment: Do you want to hurt yourself or someone else? Patient reports no desire to harm self or others. Onset of symptoms was September 06, 2021. 21:58 Method Of Arrival: Ambulatory 21:58 Acuity: ЕКАТЕРИНА 3 bb Triage Assessment: 22:02 General: Appears in no apparent distress. Behavior is calm, cooperative. Pain: Denies bb pain. Neuro: Level of Consciousness is awake, alert, obeys commands, Oriented to person, place, time, situation. Cardiovascular: Capillary refill < 3 seconds Patient's skin is warm and dry. Rhythm is sinus tachycardia. Respiratory: Reports shortness of breath Onset: The symptoms/episode began/occurred this morning, the patient has mild shortness of breath. GI: No signs and/or symptoms were reported involving the gastrointestinal system. Derm: Skin is pink, warm \\T\\ dry. Musculoskeletal: Circulation, motion, and sensation intact. 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 - Social history:: Smoking status: unknown. Screenin/28 00:26 Abuse screen: none. Nutritional screening: No deficits noted. Tuberculosis screening: sv1 No symptoms or risk factors identified. Fall Risk None identified. Assessment: 00:27 Cardiovascular: No deficits noted. Respiratory: Airway is patent. Respiratory: sv1 Respiratory effort is even, unlabored. 00:33 Respiratory: Breath sounds are clear bilaterally. sv1 Vital Signs: 09/06 21:58 BP 116 / 70; Pulse 136; Resp 18 S; Temp 98.6(O); Pulse Ox 100% on R/A; Weight 51.71 kg bb (R); Height 5 ft. 4 in. (162.56 cm) (R); 09/07 00:25 BP 133 / 118; Pulse 81; Resp 18; Temp 98.0; Pulse Ox 98% 0 lpm ; sv1 09/06 21:58 Body Mass Index 19.57 (51.71 kg, 162.56 cm) ED Course: 09/06 21:28 Patient arrived in ED. mr 22:00 Triage completed. bb 22:02 Arm band placed on Patient placed in waiting room, Patient notified of wait time. bb Covid/Flu/RSV swab sent. 09/07 00:07 Anselmo Andrews MD is Attending Physician. pkjoseph 00:14 Calvin Manjarrez, AYESHA is Primary Nurse. sv1 00:26 Patient has correct armband on for positive identification. Bed in low position. Call sv1 light in reach. Side rails up X 1. 00:26 No provider procedures requiring assistance completed. Patient did not have IV access sv1 during this emergency room visit. 00:28 COVID-19/FLU A+B/RSV (Document "Date of Onset" if Symptomatic) Sent. sv1 Administered Medications: No medications were administered Outcome: 00:25 Discharge ordered by . pkl 00:33 Discharged to home ambulatory. sv1 00:33 Condition: good 00:33 Discharge instructions given to patient. 00:34 Patient left the ED. sv1 Signatures: Anselmo Andrews MD MD pkElizabeth Malik mr RodríguezFlavia, RN RN bb Calvin Manjarrez, AYESHA RN sv1
[2021-09-07 00:40] VITALS: BP 133/118; TEMP 98; O2SAT 98
== END 2021-09-07 00:34 | disposition home or self-care (01) ==
LOC: ER 21:26 → EDSTATUS 21:27 → ER 09-07 00:34
DX: U07.1 COVID-19 (principal)
CPT/HCPCS: 0241U; 99284

== ENCOUNTER 2021-11-26 15:58 | Emergency (ER) | payer OTHER ==
[2021-11-26] MEDS ORDERED: ACETAMINOPHEN 500 MG TAB ONE (16:41)
[2021-11-26 18:17] LABS: SARS-COV-2 RT PCR NEGATIVE (NEGATIVE)
--- NOTE | 2021-11-26 20:09 | ER ---
Nurse's Notes [facility] Name: Shani Villafana Age: 21 yrs Sex: Female : 2000 Arrival Date: 11/26/2021 Time: 16:02 Bed 22 Private MD: Diagnosis: Influenza due to identified novel influenza A virus Presentation: 11/26 16:33 Chief complaint: Patient states: Fever, cough, chills for 2 days. Coronavirus screen: ll1 Vaccine status: Patient reports being unvaccinated. Client denies travel out of the [place] in the last 14 days. congestion, cough unrelated to allergies, fatigue, fever, headache, sore throat, Client presents with at least one sign or symptom that may indicate coronavirus-19. Standard/surgical mask placed on the client. Ebola Screen: Patient denies travel to an Ebola-affected area in the 21 days before illness onset. Initial Sepsis Screen: Does the patient meet any 2 criteria? HR > 90 bpm. No. Patient's initial sepsis screen is negative. Does the patient have a suspected source of infection? Yes: Productive cough/pneumonia. Risk Assessment: Do you want to hurt yourself or someone else? Patient reports no desire to harm self or others. Onset of symptoms was November 25, 2021. 16:33 Method Of Arrival: Ambulatory ll1 16:33 Acuity: ЕКАТЕРИНА 3 ll1 Triage Assessment: 16:34 General: Appears ill, Behavior is calm, cooperative, appropriate for age. Pain: ll1 Complains of pain in body Quality of pain is described as aching. EENT: Reports nasal congestion. Neuro: No deficits noted. Cardiovascular: No deficits noted. Respiratory: Reports cough that is. Historical: - Allergies: 16:34 No Known Allergies; ll1 - PMHx: 16:34 None; ll1 - PSHx: 16:34 None; ll1 - Immunization history:: Client reports having NOT received the Covid vaccine. Flu vaccine status is unknown. - Social history:: Smoking status: Reported history of juuling and/or vaping. Screenin:28 Abuse screen: Denies threats or abuse. Nutritional screening: No deficits noted. bb Tuberculosis screening: No symptoms or risk factors identified. Fall Risk None identified. Assessment: 17:38 Reassessment: No changes from previously documented assessment. Patient and/or family ll1 updated on plan of care and expected duration. Pain level reassessed. Patient is alert, oriented x 3, equal unlabored respirations, skin warm/dry/pink. 20:27 Reassessment: Patient is alert, oriented x 3, equal unlabored respirations, skin bb warm/dry/pink. pt seen by this RN at discharge pt verbalized understanding of and agrees to plan of care discharge instructions given pt ambulated with steady gait accompanied by family. Vital Signs: 16:33 BP 126 / 64; Pulse 122; Resp 16; Temp 103.0; Pulse Ox 100% ; Weight 52.62 kg; Height 5 ll1 ft. 4 in. (162.56 cm); Pain 7/10; 17:34 Pulse 118; Resp 17; Temp 101.1; Pulse Ox 100% ; ll1 16:33 Body Mass Index 19.91 (52.62 kg, 162.56 cm) 1 ED Course: 16:02 Patient arrived in ED. ja2 16:34 Triage completed. 1 16:34 Arm band placed on. 1 16:48 Garo Duff PA is PHCP. cp 16:48 Hola Berry MD is Attending Physician. cp 20:28 Patient has correct armband on for positive identification. bb 20:28 No provider procedures requiring assistance completed. Patient did not have IV access bb during this emergency room visit. Administered Medications: 16:40 Drug: Tylenol 1000 mg Route: PO; 1 Outcome: 20:08 Discharge ordered by MD. cp 20:28 Discharged to home ambulatory, with family. bb 20:28 Condition: stable 20:28 Discharge instructions given to patient, Instructed on discharge instructions, follow up and referral plans. medication usage, Demonstrated understanding of instructions, follow-up care, medications, Prescriptions given X 2. 20:29 Patient left the ED. bb Signatures: Flavia Rodríguez RN RN Garo Radford PA PA cp Lewis, Lynsay, RN RN 1 Mary Roy
--- NOTE | 2021-11-26 20:09 | EDPHYS ---
Physician Documentation [facility] Name: Shani Villafana Age: 21 yrs Sex: Female : 2000 Arrival Date: 11/26/2021 Time: 16:02 Bed 22 Private MD: ED Physician Hola Berry HPI: 11/26 17:00 This 21 yrs old Female presents to ER via Ambulatory with complaints of Cough, Fever. cp 17:00 The patient reports fever, with an emergency department temperature of 103 degrees cp Fahrenheit. Onset: The symptoms/episode began/occurred yesterday. Associated signs and symptoms: Pertinent positives: cough, headache, sore throat, body aches, Pertinent negatives: abdominal pain, diarrhea, vomiting. Severity of symptoms: in the emergency department the symptoms are unchanged despite home interventions. Historical: - Allergies: 16:34 No Known Allergies; ll1 - PMHx: 16:34 None; ll1 - PSHx: 16:34 None; ll1 - Immunization history:: Client reports having NOT received the Covid vaccine. Flu vaccine status is unknown. - Social history:: Smoking status: Reported history of juuling and/or vaping. ROS: 17:05 Constitutional: Positive for body aches, chills, fever, Negative for poor PO intake. cp 17:05 Eyes: Negative for injury, pain, redness, and discharge. cp 17:05 ENT: Positive for sore throat, Negative for drainage from ear(s), ear pain, difficulty swallowing, difficulty handling secretions. 17:05 Cardiovascular: Negative for chest pain, palpitations. 17:05 Respiratory: Positive for cough, with no reported sputum, Negative for shortness of breath, wheezing. 17:05 Abdomen/GI: Negative for abdominal pain, vomiting, diarrhea, constipation. 17:05 : Negative for urinary symptoms. 17:05 Neuro: Positive for headache, Negative for altered mental status, weakness. 17:05 All other systems are negative. Exam: 17:10 Constitutional: The patient appears in no acute distress, alert, awake, non-toxic, well cp developed, well nourished, uncomfortable. 17:10 Head/Face: Normocephalic, atraumatic. cp 17:10 Eyes: Periorbital structures: appear normal, Conjunctiva: normal, no exudate, no injection, Sclera: no appreciated abnormality, Lids and lashes: appear normal, bilaterally. 17:10 ENT: External ear(s): are unremarkable, Ear canal(s): are normal, clear, TM's: bulging, is not appreciated, bilaterally, dullness, bilaterally, erythema, is not appreciated, bilaterally, Nose: is normal, Mouth: Lips: moist, Oral mucosa: moist, Posterior pharynx: Airway: no evidence of obstruction, patent, Tonsils: no enlargement, no exudate, swelling, is not appreciated, erythema, that is moderate, exudate, is not appreciated. 17:10 Neck: ROM/movement: is normal, is supple, no meningismus, no nuchal rigidity, Lymph nodes: no appreciated lymphadenopathy. 17:10 Chest/axilla: Inspection: normal. 17:10 Cardiovascular: Rate: tachycardic, Rhythm: regular. 17:10 Respiratory: the patient does not display signs of respiratory distress, Respirations: normal, no use of accessory muscles, no retractions, labored breathing, is not present, Breath sounds: are clear throughout, no decreased breath sounds, no stridor, no wheezing. 17:10 Abdomen/GI: Exam negative for discomfort, distension, guarding, Inspection: abdomen appears normal. 17:10 Skin: no rash present. Vital Signs: 16:33 BP 126 / 64; Pulse 122; Resp 16; Temp 103.0; Pulse Ox 100% ; Weight 52.62 kg; Height 5 ll1 ft. 4 in. (162.56 cm); Pain 7/10; 17:34 Pulse 118; Resp 17; Temp 101.1; Pulse Ox 100% ; ll1 16:33 Body Mass Index 19.91 (52.62 kg, 162.56 cm) ll1 MDM: 17:00 Differential diagnosis: viral Infection, bacterial infection, bronchitis, pneumonia cp UTI, gastroenteritis, meningitis. 20:05 Patient medically screened. cp 20:08 Data reviewed: vital signs, nurses notes, lab test result(s). 20:08 Counseling: I had a detailed discussion with the patient and/or guardian regarding: the cp historical points, exam findings, and any diagnostic results supporting the discharge/admit diagnosis, lab results, to return to the emergency department if symptoms worsen or persist or if there are any questions or concerns that arise at home. Response to treatment: the patient's symptoms have mildly improved after treatment. ED course: VSS. Fever improved with meds. Patient appears non-toxic and no signs of respiratory distress. Will discharge to home for continued monitoring. 11/26 16:36 Order name: Strep; Complete Time: 20:07 ll1 11/26 16:36 Order name: COVID-19/FLU A+B (Document "Date of Onset" if Symptomatic); Complete Time: ll1 20:07 11/26 17:54 Order name: Throat Culture EDMS Administered Medications: 16:40 Drug: Tylenol 1000 mg Route: PO; ll1 Disposition Summary: 11/26/21 20:08 Discharge Ordered Location: Home cp Problem: new cp Symptoms: have improved cp Condition: Stable cp Diagnosis - Influenza due to identified novel influenza A virus cp Followup: cp - With: Private Physician - When: 2 - 3 days - Reason: Worsening of condition Discharge Instructions: - Discharge Summary Sheet cp - Influenza, Adult cp Forms: - Medication Reconciliation Form cp - Thank You Letter cp - Antibiotic Education cp - Prescription Opioid Use cp Prescriptions: - Ibuprofen 600 mg Oral Tablet - take 1 tablet by ORAL route every 8 hours As needed take with food; 30 tablet; cp Refills: 0, Product Selection Permitted - Tamiflu 75 mg Oral Capsule - take 1 tablet by ORAL route every 12 hours for 5 days; 10 tablet; Refills: 0, cp Product Selection Permitted Signatures: Dispatcher [employer] [facility] Garo Duff PA PA cp Lewis, Lynsay, RN RN ll1
[2021-11-26 20:34] VITALS: BP 126/64; O2SAT 100
[2021-11-26 20:35] VITALS: TEMP 101.1
== END 2021-11-26 20:29 | disposition home or self-care (01) ==
LOC: ER 15:58
DX: J10.1 Influenza due to other identified influenza virus with other respiratory manifestations (principal); Z20.822 Contact with and (suspected) exposure to COVID-19
CPT/HCPCS: 87070; 87081; 0240U; 99283

== ENCOUNTER 2022-01-01 12:38 | Emergency (ER) | payer OTHER ==
[2022-01-01] MEDS ORDERED: KETOROLAC 30 MG/ML INJ ONE (14:43)
--- NOTE | 2022-01-01 14:56 | RAD REPORT ---
EXAM DESCRIPTION: RAD - Shoulder Left 2 View - 01/01/2022 2:47 pm CLINICAL HISTORY: PAIN COMPARISON: No comparisons FINDINGS: No fracture or dislocation evident.
--- NOTE | 2022-01-01 14:58 | RAD REPORT ---
EXAM DESCRIPTION: RAD - Elbow Left 3 View - 01/01/2022 2:47 pm CLINICAL HISTORY: PAIN COMPARISON: No comparisons FINDINGS: The anterior and the posterior fat pads are elevated. This likely indicates that a fractur e is present although a definitive fracture line is not seen on plain radiograph. Typically, in this age group, the fracture would be in the radial head. Recommend CT of the elbow for further evaluation.
--- NOTE | 2022-01-01 14:58 | RAD REPORT ---
EXAM DESCRIPTION: RAD - Wrist Right 3 View - 01/01/2022 2:47 pm CLINICAL HISTORY: PAIN Pain COMPARISON: No comparisons FINDINGS: No fracture or dislocation seen.
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
[2022-01-01 16:08] VITALS: TEMP 98.8; O2SAT 100
[2022-01-01 16:10] VITALS: BP 115/70
== END 2022-01-01 15:53 | disposition home or self-care (01) ==
LOC: ER 12:38
PROC: 2W3DX1Z Immobilization of Left Lower Arm using Splint (ICD-10-PCS; principal; 2022-01-01)
DX: S42.402A Unspecified fracture of lower end of left humerus, initial encounter for closed fracture (principal); S60.211A Contusion of right wrist, initial encounter; S09.90XA Unspecified injury of head, initial encounter; Y09 Assault by unspecified means
CPT/HCPCS: 96372; 99284

== ENCOUNTER 2023-08-12 08:01 | Emergency (ER) | payer OTHER, SELFPAY ==
[2023-08-12 09:24] LABS: SARS-COV-2 RT PCR NEGATIVE (NEGATIVE)
--- NOTE | 2023-08-12 10:17 | ER ---
Nurse's Notes [facility] Name: Shani Villafana Age: 22 yrs Sex: Female : 2000 Arrival Date: 08/12/2023 Time: 08:01 Bed DIS10 Private MD: Diagnosis: Acute upper respiratory infection, unspecified;Influenza due to unidentified influenza virus with other respiratory manifestations Presentation: 08/12 08:16 Chief complaint: Sore throat, body aches, cough, and subjective fever x 2 days. hb 08:17 Coronavirus screen: Client presents with at least one sign or symptom that may indicate hb coronavirus-19. Provider contacted for isolation considerations. Ebola Screen: No symptoms or risks identified at this time. Initial Sepsis Screen: Does the patient meet any 2 criteria? No. Patient's initial sepsis screen is negative. Does the patient have a suspected source of infection? No. Patient's initial sepsis screen is negative. Risk Assessment: Do you want to hurt yourself or someone else? Patient reports no desire to harm self or others. Onset of symptoms was August 10, 2023. 08:17 Method Of Arrival: Ambulatory hb 08:17 Acuity: ЕКАТЕРИНА 4 hb Historical: - Allergies: 08:17 No Known Allergies; hb - Home Meds: 08:17 None [Active]; hb - PMHx: 08:17 None; hb - PSHx: 08:17 None; hb - Immunization history:: Adult Immunizations up to date. - Social history:: Smoking status: Patient denies any tobacco usage or history of. Vital Signs: 08:22 BP 107 / 72; Pulse 78; Resp 16; Temp 98.1; Pulse Ox 100% on R/A; Weight 56.7 kg; Height hb 5 ft. 4 in. ; Pain 5/10; 08:22 Body Mass Index 21.46 (56.70 kg, 162.56 cm) hb 08:22 Pain Scale: Adult hb ED Course: 08:05 Patient arrived in ED. rg4 08:08 Garo Donahue MD is Attending Physician. [facility] 08:17 Triage completed. hb 08:18 Arm band placed on. hb Administered Medications: No medications were administered Outcome: 10:17 Discharge ordered by . sue 10:51 Patient left the ED. hb Signatures: Garo Donahue MD MD cha Baxter, Heather, RN RN Analia Ibrahim rg4 Corrections: (The following items were deleted from the chart) 08:17 08:16 Chief complaint: Sore throat, body aches, cough, and subjective fever x 3 days. hbhb
--- NOTE | 2023-08-12 10:17 | EDPHYS ---
Physician Documentation [facility] Name: Shani Villafana Age: 22 yrs Sex: Female : 2000 Arrival Date: 08/12/2023 Time: 08:01 Bed DIS10 Private MD: ED Physician Garo Donahue HPI: 08/12 10:13 This 22 yrs old Female presents to ER via Ambulatory with complaints of Flu sue Symptoms. 10:13 The patient or guardian reports airway noise, cough. Onset: The symptoms/episode sue began/occurred 2 day(s) ago. Severity of symptoms: At their worst the symptoms were mild, in the emergency department the symptoms are unchanged. Modifying factors: The symptoms are alleviated by nothing. Associated signs and symptoms: Pertinent positives: fever, rhinorrhea, sore throat. The patient has experienced similar episodes in the past, a few times. Historical: - Allergies: 08:17 No Known Allergies; hb - Home Meds: 08:17 None [Active]; hb - PMHx: 08:17 None; hb - PSHx: 08:17 None; hb - Immunization history:: Adult Immunizations up to date. - Social history:: Smoking status: Patient denies any tobacco usage or history of. ROS: 10:14 Eyes: Negative for injury, pain, redness, and discharge, Neck: Negative for injury, sue pain, and swelling, Cardiovascular: Negative for chest pain, palpitations, and edema, Respiratory: Negative for shortness of breath, cough, wheezing, and pleuritic chest pain, Abdomen/GI: Negative for abdominal pain, nausea, vomiting, diarrhea, and constipation, Back: Negative for injury and pain, : Negative for injury, bleeding, discharge, and swelling, MS/Extremity: Negative for injury and deformity, Skin: Negative for injury, rash, and discoloration, Neuro: Negative for headache, weakness, numbness, tingling, and seizure, Psych: Negative for depression, anxiety, suicide ideation, homicidal ideation, and hallucinations, Allergy/Immunology: Negative for hives, rash, and allergies, Endocrine: Negative for neck swelling, polydipsia, polyuria, polyphagia, and marked weight changes, Hematologic/Lymphatic: Negative for swollen nodes, abnormal bleeding, and unusual bruising, 10:14 Constitutional: Positive for fever, 10:14 Respiratory: Positive for cough, "sounds productive", Exam: 10:14 Constitutional: This is a well developed, well nourished patient who is awake, alert, sue and in no acute distress. Head/Face: Normocephalic, atraumatic. Eyes: Pupils equal round and reactive to light, extra-ocular motions intact. Lids and lashes normal. Conjunctiva and sclera are non-icteric and not injected. Cornea within normal limits. Periorbital areas with no swelling, redness, or edema. ENT: Nares patent. No nasal discharge, no septal abnormalities noted. Tympanic membranes are normal and external auditory canals are clear. Oropharynx with no redness, swelling, or masses, exudates, or evidence of obstruction, uvula midline. Mucous membranes moist. Neck: Trachea midline, no thyromegaly or masses palpated, and no cervical lymphadenopathy. Supple, full range of motion without nuchal rigidity, or vertebral point tenderness. No Meningismus. Chest/axilla: Normal chest wall appearance and motion. Nontender with no deformity. No lesions are appreciated. Cardiovascular: Regular rate and rhythm with a normal S1 and S2. No gallops, murmurs, or rubs. Normal PMI, no JVD. No pulse deficits. Respiratory: Lungs have equal breath sounds bilaterally, clear to auscultation and percussion. No rales, rhonchi or wheezes noted. No increased work of breathing, no retractions or nasal flaring. Abdomen/GI: Soft, non-tender, with normal bowel sounds. No distension or tympany. No guarding or rebound. No evidence of tenderness throughout. Skin: Warm, dry with normal turgor. Normal color with no rashes, no lesions, and no evidence of cellulitis. MS/ Extremity: Pulses equal, no cyanosis. Neurovascular intact. Full, normal range of motion. Neuro: Awake and alert, GCS 15, oriented to person, place, time, and situation. Cranial nerves II-XII grossly intact. Motor strength 5/5 in all extremities. Sensory grossly intact. Cerebellar exam normal. Normal gait. Psych: Awake, alert, with orientation to person, place and time. Behavior, mood, and affect are within normal limits. Vital Signs: 08:22 BP 107 / 72; Pulse 78; Resp 16; Temp 98.1; Pulse Ox 100% on R/A; Weight 56.7 kg; Height hb 5 ft. 4 in. ; Pain 01/18; 08:22 Body Mass Index 21.46 (56.70 kg, 162.56 cm) hb 08:22 Pain Scale: Adult hb MDM: 08:09 Patient medically screened. [facility] 10:16 Differential diagnosis: viral Infection, bacterial infection, URI, bronchitis, sue pneumonia UTI. Differential Diagnosis: Obstructed Airway Bronchitis Influenza Upper Respiratory Infection Sinusitis. Data reviewed: vital signs, nurses notes, lab test result(s), Flu: positive. Consideration of Admission/Observation Escalation of care including admission/observation considered. I considered the following discharge prescriptions or medication management in the emergency department Medications were administered in the Emergency Department. See MAR. Test considered but Not performed: Labs: NO LABS. Care significantly affected by the following chronic conditions: NONE. 08/12 08:09 Order name: COVID-19/FLU A+B/RSV sue 08/12 08:30 Order name: Strep hb 08/12 09:17 Order name: Throat Culture EDMS Administered Medications: No medications were administered Disposition Summary: 08/12/23 10:17 Discharge Ordered Notes: Location: Home [facility] Problem: new [facility] Symptoms: have improved sue Condition: Stable sue Diagnosis - Acute upper respiratory infection, unspecified sue - Influenza due to unidentified influenza virus with other respiratory manifestations sue Followup: sue - With: Private Physician - When: 2 - 3 days - Reason: Recheck today's complaints, Continuance of care, Re-evaluation by your physician Discharge Instructions: - Discharge Summary Sheet sue - Influenza, Adult sue - Upper Respiratory Infection, Adult sue - Cool Mist Vaporizer sue - Upper Respiratory Infection, Adult, [id number] sue - Influenza, Adult, [id number] [facility] - Cough, Adult [facility] Forms: - Medication Reconciliation Form [facility] - Thank You Letter [facility] - Antibiotic Education [facility] - Prescription Opioid Use [facility] - Patient Portal Instructions [facility] - Leadership Thank You Letter [facility] Prescriptions: - Zithromax Z-Jono 250 mg Oral Tablet - take 1 tablet ORAL route as directed for 5 days Day 1 - take two (2) tablets sue one time. Day 2, 3, 4 , 5 take one (1) tablet once daily.; 6 tablet; Refills: 0, Product Selection Permitted - Tamiflu 75 mg Oral capsule - take 1 tablet ORAL route every 12 hours for 5 days; 10 tablet; Refills: 0, sue Product Selection Permitted Signatures: Dispatcher [employer] Garo Silva MD MD cha Baxter, Heather, AYESHA RN hb
[2023-08-12 10:59] VITALS: BP 107/72; TEMP 98.1; O2SAT 100
== END 2023-08-12 10:51 | disposition home or self-care (01) ==
LOC: ER 08:01
DX: J11.1 Influenza due to unidentified influenza virus with other respiratory manifestations (principal); Z11.52 Encounter for screening for COVID-19
CPT/HCPCS: 0241U; 87070; 87081; 99281

== ENCOUNTER → 2023-11-17 | Emergency (ER) | payer SELFPAY ==
[~2023-11-17] MED LIST: AZITHROMYCIN 250 MG TAB ONE; CEFTRIAXONE 1000 MG/VIAL ONE
[2023-11-17 16:19] LABS: Absolute Lymphocytes (CBC) 2.4 K/uL (0.7-4.9); Basophils % 0.3 % (0-1.3); Eosinophils % 0.2 % (0-4.4); Hematocrit 35.8 % (36.0-45.0); Lymphocytes % 28.3 % (15.3-44.8); MCV 85.9 fL (80-100); MPV 9.1 fL (7.6-11.3); Platelets 216 thou/uL (152-406); RBC Red Blood Cell Count 4.17 M/uL (3.86-4.86)
[2023-11-17 16:26] LABS: Specific Gravity 1.023 (1.005-1.030)
[2023-11-17 16:26] LABS: Anion Gap 7.5 mEq/L (5.0-15.0); Potassium 3.5 mEq/L (3.5-5.1)
[2023-11-17 16:37] LABS: Specific Gravity 1.023 (1.005-1.030); Urine Bacteria None Seen /HPF (<20); Urine Bilirubin NEGATIVE (Negative); Urine Blood Trace (Negative); Urine Clarity Extremely Turbid (Clear); Urine Color Light-Yellow (Yellow); Urine Glucose NEGATIVE (Negative); Urine Mucus Slight /HPF (None Seen); Urine Protein NEGATIVE (Negative); Urine RBC 21-50 /HPF (None Seen); Urine Urobilinogen Normal (Normal); Urine Yeast (Budding) Trace /HPF (None Seen); Urine pH 5.5 (5.0-7.0)
--- NOTE | 2023-11-17 18:12 | EDPHYS ---
Physician Documentation [facility] Name: Shani Villafana Age: 23 yrs Sex: Female : 2000 Arrival Date: 11/17/2023 Time: 15:06 Bed 16 Private MD: ED Physician Taj Decker HPI: 11/16 16:00 This 23 yrs old Female presents to ER via Ambulatory with complaints of Pelvic Problem. cp 16:00 The patient presents with pelvic pain, a possible exposure to a sexually transmitted cp disease, vaginal discharge. 16:00 Onset: The symptoms/episode began/occurred 4 day(s) ago. cp 16:00 Associated signs and symptoms: Pertinent negatives: dysuria, fever, vaginal bleeding. cp Severity of symptoms: in the emergency department the symptoms are unchanged, despite home interventions. Patient reports having sexual intercourse that was unprotected with new partner. C/o vaginal discharge, pelvic pain and swelling. Currently using Monistat cream w/o improvement. 16:00 Patient reports being tested for STDs 2 days ago and not receiving results. No cp treatment. Historical: - Allergies: 15:44 No Known Allergies; hb - Home Meds: 15:44 None [Active]; hb - PMHx: 15:44 None; hb - PSHx: 15:44 None; hb - Immunization history:: Adult Immunizations up to date. - Social history:: Smoking status: Reported history of juuling and/or vaping. ROS: 16:05 Positive for pelvic pain, vaginal discharge, vaginal itching, Negative for flank cp pain, burning with urination, vaginal bleeding, 16:05 Constitutional: Negative for body aches, chills, fever, cp 16:05 Respiratory: Negative for cough, shortness of breath, wheezing, 16:05 Abdomen/GI: Negative for vomiting, diarrhea, constipation, 16:05 Skin: Negative for rash, 16:05 All other systems are negative, Exam: 16:10 Constitutional: The patient appears in no acute distress, alert, awake, non-toxic, well cp developed, well nourished, 16:10 Head/Face: Normocephalic, atraumatic. cp 16:10 Eyes: Periorbital structures: appear normal, Conjunctiva: normal, no exudate, no injection, Sclera: no appreciated abnormality, Lids and lashes: appear normal, bilaterally, 16:10 ENT: External ear(s): are unremarkable, Nose: is normal, Mouth: Lips: moist, Oral mucosa: moist, Posterior pharynx: Airway: no evidence of obstruction, patent, 16:10 Chest/axilla: Inspection: normal, 16:10 Cardiovascular: Rate: normal, 16:10 Respiratory: the patient does not display signs of respiratory distress, Respirations: normal, no use of accessory muscles, no retractions, labored breathing, is not present, Breath sounds: are clear throughout, no decreased breath sounds, no stridor, no wheezing, 16:10 Abdomen/GI: Inspection: abdomen appears normal, Bowel sounds: normal, in all quadrants, Palpation: abdomen is soft and non-tender, in all quadrants, 16:10 Back: pain, is absent, ROM is normal, 16:10 : Pelvic Exam: External exam: no erythema, no lesions, no warts seen, mild swelling and tenderness, Speculum exam: no bleeding is noted, no cervicitis, os that is closed, bimanual exam reveals no cervical motion tenderness, no uterine tenderness, no adnexa tenderness or masses bilaterally, the nurse was present for the exam, noted white colored Monistat cream, Sexual behavior: the patient is sexually active, new partner, method of control is none, Vital Signs: 15:41 BP 120 / 97; Pulse 88; Resp 16; Temp 98.2(O); Pulse Ox 100% on R/A; Weight 54.88 kg; hb Height 5 ft. 4 in. ; Pain 4/10; 17:50 BP 116 / 80; Pulse 81; Resp 16 S; Pulse Ox 98% on R/A; kc6 15:41 Body Mass Index 20.77 (54.88 kg, 162.56 cm) hb 15:41 Pain Scale: Adult hb MDM: 15:34 Patient medically screened. 16:00 Differential diagnosis: pelvic inflammatory disease, urinary tract infection, vaginosis. 18:12 Data reviewed: vital signs, nurses notes, lab test result(s), and as a result, I will cp discharge patient. 18:12 I considered the following discharge prescriptions or medication management in the emergency department Medications were administered in the Emergency Department. See MAR. Counseling: I had a detailed discussion with the patient and/or guardian regarding the historical points, exam findings, and any diagnostic results supporting the discharge/admit diagnosis, lab results, to return to the emergency department if symptoms worsen or persist or if there are any questions or concerns that arise at home. 11/16 15:57 Order name: CBC with Diff; Complete Time: 17:06 cp 11/16 15:57 Order name: BMP; Complete Time: 17:06 cp 11/16 15:57 Order name: GC (Neal/Chl) Probe VAGINAL (Do not order if pt is under 13, order Culture cp instead) 11/16 15:57 Order name: Wet Prep; Complete Time: 18:11 cp 11/16 15:57 Order name: Urinalysis W/Microscopic; Complete Time: 17:06 cp 11/16 15:57 Order name: Test, Urine; Complete Time: 17:06 cp 11/16 15:57 Order name: IV; Complete Time: 16:13 cp 11/16 15:57 Order name: Pelvic Exam Setup; Complete Time: 16:13 cp Administered Medications: 17:31 Drug: Rocephin IV 1 grams IV at calculated rate once; Given slow IV push per pharmacy kc6 instructions Route: IV; Rate: calculated rate; Site: left antecubital; 18:08 Follow up: Response: No adverse reaction; IV Status: Completed infusion; IV Intake: [id number] 17:31 Drug: AZITHromycin PO 1 grams PO once Route: PO; kc6 18:08 Follow up: Response: No adverse reaction [facility] Disposition Summary: 11/17/23 18:12 Discharge Ordered Notes: Location: Home cp Problem: new cp Symptoms: have improved cp Condition: Stable cp Diagnosis - Vaginitis, vulvitis and vulvovaginitis in diseases classified elsewhere cp Followup: cp - With: Private Physician - When: 1 week - Reason: Recheck today's complaints Discharge Instructions: - Discharge Summary Sheet cp - Vaginitis cp Forms: - Medication Reconciliation Form cp - Thank You Letter cp - Antibiotic Education cp - Prescription Opioid Use cp - Patient Portal Instructions cp - Leadership Thank You Letter cp - Work release form kc6 Prescriptions: - Ibuprofen 600 mg Oral tablet - take 1 tablet ORAL route every 8 hours As needed take with food; 30 tablet; cp Refills: 0, Product Selection Permitted - Doxycycline Hyclate 100 mg Oral Tablet - take 1 tablet ORAL route every 12 hours; 20 tablet; Refills: 0, Product cp Selection Permitted - Metronidazole 500 mg Oral Tablet - take 1 tablet ORAL route every 8 hours; 30 tablet; Refills: 0, Product cp Selection Permitted Addendum: 11/18/2023 21:13 I was immediately available on-site in the Emergency Department for consultation in the m s3 care of the patient. Signatures: Dispatcher [employer] EDMS Garo Duff PA PA cp Baxter, Heather, RN RN hb Sims, Marcus, DO DO ms3 Shanice Beauchamp RN RN kc6 Corrections: (The following items were deleted from the chart) 05:20 03 16:00 The patient presents with a possible exposure to a sexually transmitted cp disease, vaginal discharge, cp 11/17 05:21 05:20 Positive for pelvic pain, vaginal discharge, vaginal itching, Negative for cp flank pain, burning with urination, vaginal bleeding, cp
--- NOTE | 2023-11-17 18:12 | ER ---
Nurse's Notes [facility] Name: Shani Villafana Age: 23 yrs Sex: Female : 2000 Arrival Date: 11/17/2023 Time: 15:06 Bed 16 Private MD: Diagnosis: Vaginitis, vulvitis and vulvovaginitis in diseases classified elsewhere Presentation: 11/16 15:41 Chief complaint: Pelvic pain, vaginal itching/burning, and pain with urination x 4 hb days. Coronavirus screen: At this time, the client does not indicate any symptoms associated with coronavirus-19. Ebola Screen: No symptoms or risks identified at this time. Initial Sepsis Screen: Does the patient meet any 2 criteria? No. Patient's initial sepsis screen is negative. Does the patient have a suspected source of infection? No. Patient's initial sepsis screen is negative. Risk Assessment: Do you want to hurt yourself or someone else? Patient reports no desire to harm self or others. Onset of symptoms was November 13, 2023. 15:41 Method Of Arrival: Ambulatory hb 15:41 Acuity: ЕКАТЕРИНА 4 hb Triage Assessment: 15:44 General: Appears in no apparent distress. Behavior is calm, cooperative. Pain: Pain hb currently is 4 out of 10 on a pain scale. Neuro: Level of Consciousness is awake, alert, obeys commands, Oriented to person, place, time, situation. Cardiovascular: Patient's skin is warm and dry. Respiratory: Respiratory effort is even, unlabored, Respiratory pattern is regular, symmetrical. : Reports pain with urination, vaginal itching. Historical: - Allergies: 15:44 No Known Allergies; hb - Home Meds: 15:44 None [Active]; hb - PMHx: 15:44 None; hb - PSHx: 15:44 None; hb - Immunization history:: Adult Immunizations up to date. - Social history:: Smoking status: Reported history of juuling and/or vaping. Screenin:18 [facility] ED Fall Risk Assessment (Adult) History of falling in the last 3 months, kc6 including since admission No falls in past 3 months (0 pts) Confusion or Disorientation No (0 pts) Intoxicated or Sedated No (0 pts) Impaired Gait No (0 pts) Mobility Assist Device Used No (0 pt) Altered Elimination No (0 pt) Score/Fall Risk Level 0 - 2 = Low Risk. Abuse screen: Denies threats or abuse. Denies injuries from another. Nutritional screening: No deficits noted. Tuberculosis screening: No symptoms or risk factors identified. Assessment: 16:18 General: Appears in no apparent distress. comfortable, well groomed, well developed, kc6 Behavior is calm, cooperative, appropriate for age. Pain: Denies pain. Neuro: Level of Consciousness is awake, alert, obeys commands, Oriented to person, place, time, situation, Appropriate for age. Cardiovascular: Capillary refill < 3 seconds. Respiratory: Airway is patent Trachea midline Respiratory effort is even, unlabored, Respiratory pattern is regular, symmetrical. GI: No signs and/or symptoms were reported involving the gastrointestinal system. : Urine is clear, Reports vaginal itching. EENT: No signs and/or symptoms were reported regarding the EENT system. Derm: No signs and/or symptoms reported regarding the dermatologic system. Skin is intact, is healthy with good turgor, Skin is pink, warm \T\ dry. Musculoskeletal: No signs and/or symptoms reported regarding the musculoskeletal system. Circulation, motion, and sensation intact. Capillary refill < 3 seconds, Range of motion: intact in all extremities. 17:18 Reassessment: Patient appears in no apparent distress at this time. No changes from kc6 previously documented assessment. Patient and/or family updated on plan of care and expected duration. Pain level reassessed. Patient is alert, oriented x 3, equal unlabored respirations, skin warm/dry/pink. 18:18 Reassessment: Patient appears in no apparent distress at this time. No changes from kc6 previously documented assessment. Patient and/or family updated on plan of care and expected duration. Pain level reassessed. Patient is alert, oriented x 3, equal unlabored respirations, skin warm/dry/pink. Vital Signs: 15:41 BP 120 / 97; Pulse 88; Resp 16; Temp 98.2(O); Pulse Ox 100% on R/A; Weight 54.88 kg; hb Height 5 ft. 4 in. ; Pain 4/10; 17:50 BP 116 / 80; Pulse 81; Resp 16 S; Pulse Ox 98% on R/A; kc6 15:41 Body Mass Index 20.77 (54.88 kg, 162.56 cm) hb 15:41 Pain Scale: Adult hb ED Course: 15:09 Patient arrived in ED. rg4 15:13 Garo Duff PA is PHCP. cp 15:13 Taj Decker DO is Attending Physician. cp 15:44 Triage completed. hb 15:44 Arm band placed on. hb 15:45 Client placed on continuous cardiac and pulse oximetry monitoring. NIBP monitoring hb applied. Pulse ox on. NIBP on. 15:54 Shanice Beauchamp, RN is Primary Nurse. kc6 16:13 Inserted saline lock: 20 gauge in left antecubital area, using aseptic technique. Blood kc6 collected. 16:18 Patient has correct armband on for positive identification. Bed in low position. Call kc6 light in reach. Side rails up X 1. 16:18 Test, Urine Sent. kc6 16:18 Urinalysis W/Microscopic Sent. kc6 16:45 Assist provider with pelvic exam: Set up pelvic tray. Performed by Garo PAEZ kc6 Specimens sent to lab. Patient tolerated well. 16:50 GC (Neal/Chl) Probe VAGINAL (Do not order if pt is under 13, order Culture instead) Sent.kc6 16:50 Wet Prep Sent. kc6 18:25 IV discontinued, intact, bleeding controlled, No redness/swelling at site. Pressure kc6 dressing applied. Administered Medications: 17:31 Drug: Rocephin IV 1 grams IV at calculated rate once; Given slow IV push per pharmacy kc6 instructions Route: IV; Rate: calculated rate; Site: left antecubital; 18:08 Follow up: Response: No adverse reaction; IV Status: Completed infusion; IV Intake: [id number] 17:31 Drug: AZITHromycin PO 1 grams PO once Route: PO; kc6 18:08 Follow up: Response: No adverse reaction kc6 Medication: 18:25 VIS not applicable for this client. kc6 Intake: 18:08 IV: 10ml; Total: 10ml. kc6 Outcome: 18:12 Discharge ordered by . cp 18:25 Discharged to home ambulatory, kc6 18:25 Condition: good 18:25 Discharge instructions given to patient, Instructed on discharge instructions, follow up and referral plans. medication usage, safe sex practices, Demonstrated understanding of instructions, follow-up care, medications, Prescriptions given X 3, 18:25 Patient left the ED. kc6 Signatures: Garo Duff PA PA cp Baxter, Heather, RN RN Analia Ibrahim rg4 Shanice Beauchamp, RN RN kc6
[2023-11-17 18:48] VITALS: BP 116/80; TEMP 98.2; O2SAT 98
[2023-11-21 23:54] LABS: C.trachomatis RNA,TMA Not Detected (Not Detected)
== END ==
LOC: ER 15:06
DX: R10.2 Pelvic and perineal pain (principal); N77.1 Vaginitis, vulvitis and vulvovaginitis in diseases classified elsewhere
CPT/HCPCS: 36415; 80048; 81001; 81025; 85025; 87210; 87490; 87590; 96365; 99284; J0696

== ENCOUNTER 2025-01-25 13:45 | Emergency (ER) | payer SELFPAY ==
[2025-01-25] MEDS ORDERED: KETOROLAC 30 MG/ML INJ ONE (14:28)
[2025-01-25] MEDS ORDERED: ONDANSETRON 4 MG/2 ML VIAL ONE (14:28)
[2025-01-25] MEDS ORDERED: NA CHLORIDE 0.9% 1,000 ML ONE (14:28)
[2025-01-25] MEDS ORDERED: HYDROCODONE/APAP 5/325 MG TAB ONE (14:28)
[2025-01-25 14:55] LABS: Absolute Lymphocytes (CBC) 2.3 K/uL (0.7-4.9); Absolute Monocytes 0.9 K/uL (0.1-1.3); Absolute Neutrophil 6.3 K/uL (1.8-8.0); Basophils % 0.4 % (0-1.3); Eosinophils % 0.2 % (0-4.4); Hematocrit 36.9 % (36.0-45.0); Hemoglobin 12.6 g/dL (12.0-15.0); Lymphocytes % 24.3 % (15.3-44.8); MCH 28.3 pg (27.0-35.0); MCHC 34.1 g/dL (32.0-36.0); MCV 82.9 fL (80-100); MPV 9.4 fL (7.6-11.3); Monocytes % 9.8 % (3.3-12.3); Neutrophils % 65.3 % (41.7-73.7); Nucleated Red Blood Cells % 0.1 % (0-0); Platelets 272 thou/uL (152-406); RBC Red Blood Cell Count 4.45 M/uL (3.86-4.86); Red Cell Distribution Width 15.8 % (12.1-15.2)
--- NOTE | 2025-01-25 15:11 | RAD REPORT ---
Transvaginal Study Probe CLINICAL INDICATION: Female 24 years old ABD PAIN TECHNIQUE: Real-time ultrasonography of the pelvis was performed transvaginally. Color and spectral D oppler evaluation of the ovaries was performed. [id number]. COMPARISON: No prior exam. FINDINGS: UTERUS AND CERVIX: The uterus measures 8.1 x 4.5 x 6.5 cm (cervix to fundus x AP x transverse). The u terus is normal. No masses seen . The endometrium is normal,15 mm thickness. RIGHT OVARY: Probable corpus luteal cyst in the right ovary measuring 17 mm. The right ovary measures 2.6 x 2.6 x 3.3 cm with volume of 15.8 mL. Normal color and spectral Doppler evaluation of the right ovary.. LEFT OVARY: Normal The left ovary measures 2.6 x 1.3 x 1.2 cm with volume of 2.2 mL. Normal Color a nd spectral Doppler evaluation of the left ovary.. FREE FLUID: No free fluid. IMPRESSION: 1. No acute findings identified. 2. Bilateral ovarian blood flow.
[2025-01-25 15:12] LABS: Specific Gravity 1.024 (1.005-1.030); Sqamous Epithelial <5 /HPF (None Seen); Urine Bacteria None Seen /HPF (<20); Urine Bilirubin NEGATIVE (Negative); Urine Blood Trace (Negative); Urine Clarity Turbid (Clear); Urine Color Yellow (Yellow); Urine Glucose NEGATIVE (Negative); Urine Ketones NEGATIVE (Negative); Urine Micro Reflex YN NO BILL MICROSCOPIC; Urine Mucus 4+ /HPF (None Seen); Urine Nitrite NEGATIVE (Negative); Urine Protein TRACE (Negative); Urine RBC <5 /HPF (None Seen); Urine Urobilinogen Normal (Normal); Urine WBC None Seen /HPF (<5); Urine pH 5.5 (5.0-7.0)
[2025-01-25 15:22] LABS: Specific Gravity 1.024 (1.005-1.030)
[2025-01-25 15:33] LABS: Albumin 3.8 g/dL (3.4-5.0); Anion Gap 9.8 mEq/L (5.0-15.0); Bilirubin Total 0.4 mg/dL (0.2-1.0); Potassium 3.8 mEq/L (3.5-5.1); Protein, Total 7.8 g/dL (6.4-8.2)
--- NOTE | 2025-01-25 16:37 | ER ---
Nurse's Notes [facility] Name: Shani Villafana Age: 24 yrs Sex: Female : 2000 Arrival Date: 01/25/2025 Time: 13:45 Bed 14 Private MD: Diagnosis: Weeks of gestation of , unspecified or less than 10 weeks Presentation: 01/25 14:01 Chief complaint: Patient states: L sided abdominal pain for 1 day. Has been having ll1 abdominal pain for a few weeks. Coronavirus screen: Client denies travel out of the [place] in the last 14 days. At this time, the client does not indicate any symptoms associated with coronavirus-19. Ebola Screen: Patient denies travel to an Ebola-affected area in the 21 days before illness onset. Initial Sepsis Screen: Does the patient meet any 2 criteria? No. Patient's initial sepsis screen is negative. Does the patient have a suspected source of infection? No. Patient's initial sepsis screen is negative. Risk Assessment: Do you want to hurt yourself or someone else? Patient reports no desire to harm self or others. Onset of symptoms was January 25, 2025. 14:01 Method Of Arrival: Ambulatory ll1 14:01 Acuity: ЕКАТЕРИНА 3 ll1 Triage Assessment: 14:00 General: Appears uncomfortable, Behavior is calm, cooperative, appropriate for age. ll1 Pain: Complains of pain in abdomen. GI: Reports lower abdominal pain, upper abdominal pain. Historical: - Allergies: 14:00 No Known Allergies; ll1 - PMHx: 14:01 None; ll1 - PSHx: 14:01 None; ll1 - Immunization history:: Adult Immunizations up to date. - Infectious Disease History:: Denies. - Social history:: Smoking status: Reported history of juuling and/or vaping. Screenin:01 [facility] ED Fall Risk Assessment (Adult) History of falling in the last 3 months, db including since admission No falls in past 3 months (0 pts) Confusion or Disorientation No (0 pts) Intoxicated or Sedated No (0 pts) Impaired Gait No (0 pts) Mobility Assist Device Used No (0 pt) Altered Elimination No (0 pt) Score/Fall Risk Level 0 - 2 = Low Risk Oriented to surroundings, Maintained a safe environment. Abuse screen: Denies threats or abuse. Denies injuries from another. Nutritional screening: No deficits noted. Tuberculosis screening: No symptoms or risk factors identified. Assessment: 14:37 Reassessment: Patient appears in no apparent distress at this time. Patient and/or db family updated on plan of care and expected duration. Pain level reassessed. Patient is alert, oriented x 3, equal unlabored respirations, skin warm/dry/pink. General: Appears in no apparent distress. comfortable, Behavior is calm, cooperative. Pain: Complains of pain in suprapubic area. Neuro: Level of Consciousness is awake, alert, obeys commands, Oriented to person, place, time, situation. 15:01 Reassessment: TORADOL MEDICATION ADMINISTRATION PENDING NEGATIVE TEST RESULT. db 16:02 Reassessment: Patient appears in no apparent distress at this time. Patient and/or db family updated on plan of care and expected duration. Pain level reassessed. Patient is alert, oriented x 3, equal unlabored respirations, skin warm/dry/pink. 16:47 Reassessment: Patient appears in no apparent distress at this time. Patient and/or db family updated on plan of care and expected duration. Pain level reassessed. Patient is alert, oriented x 3, equal unlabored respirations, skin warm/dry/pink. Patient states symptoms have improved. Vital Signs: 14:01 BP 135 / 77; Pulse 113; Resp 15; Pulse Ox 100% ; Weight 55.79 kg; Height 5 ft. 4 in. ; ll1 Pain 7/10; 16:00 BP 123 / 79; Pulse 89; Resp 16; Pulse Ox 99% ; db 16:30 BP 113 / 77; Pulse 93; Resp 16; Pulse Ox 99% on R/A; db 14:01 Body Mass Index 21.11 (55.79 kg, 162.56 cm) ll1 14:01 Pain Scale: Adult ll1 ED Course: 13:49 Patient arrived in ED. sj2 14:00 Arm band placed on. ll1 14:03 Triage completed. ll1 14:03 Pop Hernandez FNP-C [facility]. dr5 14:03 Juan Spears MD is Attending Physician. dr5 14:09 Alexandria De La Torre, AYESHA is Primary Nurse. db 14:18 Initial lab(s) drawn, by me, sent to lab. Urine collected: clean catch specimen. db Inserted saline lock: 20 gauge in right antecubital area, using aseptic technique. Blood collected. Flushed with 10 mL NS. 15:01 Transvaginal Study (probe) In Process Unspecified. EDMS 16:47 Patient has correct armband on for positive identification. Bed in low position. Call db light in reach. Side rails up X 1. Provided Education on: DISCHARGE AND FOLLOWUP. Pulse ox on. NIBP on. Warm blanket given. Pillow given. 16:47 No provider procedures requiring assistance completed. IV discontinued, intact, db bleeding controlled, No redness/swelling at site. Administered Medications: 14:30 Drug: NS 0.9% IV 1000 ml IV at 1 bolus Per protocol; to be given as a bolus over 60 db minutes Route: IV; Rate: 1 bolus; Site: right antecubital; 16:01 Follow up: Response: No adverse reaction; IV Status: Completed infusion; IV Intake: db 1000ml 14:36 Drug: Ondansetron IVP 4 mg IVP once; over 2 minutes Route: IVP; Site: right antecubital;db 16:02 Follow up: Response: No adverse reaction db 14:36 Drug: HYDROcodone-acetaminophen PO 5 mg-325 mg 2 tabs PO once Route: PO; db 16:01 Follow up: Response: No adverse reaction db 15:48 Not Given (Pos ): TORadol - [id number] mg IVP once dr5 Medication: 16:47 VIS not applicable for this client. db Intake: 16:01 IV: 1000ml; Total: 1000ml. db Outcome: 16:37 Discharge ordered by . dr5 16:47 Discharged to home ambulatory, with family, db 16:47 Condition: stable 16:47 Discharge instructions given to patient, Instructed on discharge instructions, follow up and referral plans. Prescriptions given X 1, 16:49 Patient left the ED. db Signatures: Dispatcher [employer] EDMS Lynn Dimas RN RN ll1 Alexandria De La Torre RN RN db Maggie Hunt 2 Pop Hernandez, AIRCRAFT CYLINDER MECHANIC-C AIRCRAFT CYLINDER MECHANIC-Cdr5
--- NOTE | 2025-01-25 16:38 | EDPHYS ---
Physician Documentation [facility] Name: Shani Villafana Age: 24 yrs Sex: Female : 2000 Arrival Date: 01/25/2025 Time: 13:45 Bed 14 Private MD: ED Physician Juan Spears HPI: 01/25 17:25 This 24 yrs old Female presents to ER via Ambulatory with complaints of dr5 Abdominal Pain. 17:25 The patient presents with abdominal pain. Onset: The symptoms/episode began/occurred 1 dr5 day(s) ago. Patient is a 24-year-old female with no past med history coming in with lower abdominal pain has been going on for 1 day. Patient denies vaginal discharge or vaginal bleeding. Patient reports that she does not know her last menstrual period and missed her last period.. Historical: - Allergies: 14:00 No Known Allergies; ll1 - PMHx: 14:01 None; ll1 - PSHx: 14:01 None; ll1 - Immunization history:: Adult Immunizations up to date. - Infectious Disease History:: Denies. - Social history:: Smoking status: Reported history of juuling and/or vaping. ROS: 17:25 Constitutional: as per hpi dr5 Exam: 17:25 Constitutional: This is a well developed, well nourished patient who is awake, alert, dr5 and in no acute distress. Head/Face: Normocephalic, atraumatic. Eyes: Pupils equal round and reactive to light, extra-ocular motions intact. Lids and lashes normal. Conjunctiva and sclera are non-icteric and not injected. Cornea within normal limits. Periorbital areas with no swelling, redness, or edema. Neck: Trachea midline, no thyromegaly or masses palpated, and no cervical lymphadenopathy. Supple, full range of motion without nuchal rigidity, or vertebral point tenderness. No Meningismus. Chest/axilla: Normal chest wall appearance and motion. Nontender with no deformity. No lesions are appreciated. Cardiovascular: Regular rate and rhythm with a normal S1 and S2. Normal PMI, no JVD. No pulse deficits. Respiratory: Lungs have equal breath sounds bilaterally, clear to auscultation. No rales, rhonchi or wheezes noted. No increased work of breathing, no retractions or nasal flaring. Abdomen/GI: Soft, non-tender, non-distended Back: No spinal tenderness. No costovertebral tenderness. Full range of motion. Skin: Warm, dry with normal turgor. Normal color with no rashes, no lesions, and no evidence of cellulitis. MS/ Extremity: Pulses equal, no cyanosis. Neurovascular intact. Full, normal range of motion. Vital Signs: 14:01 BP 135 / 77; Pulse 113; Resp 15; Pulse Ox 100% ; Weight 55.79 kg; Height 5 ft. 4 in. ; ll1 Pain 7/10; 16:00 BP 123 / 79; Pulse 89; Resp 16; Pulse Ox 99% ; db 16:30 BP 113 / 77; Pulse 93; Resp 16; Pulse Ox 99% on R/A; db 14:01 Body Mass Index 21.11 (55.79 kg, 162.56 cm) ll1 14:01 Pain Scale: Adult ll1 MDM: 14:03 Medical Screening Exam initiated dr5 17:25 Differential diagnosis: urinary tract infection, , UTI, Dehydration, Ovarian dr5 Cyst, Ectopic. Data reviewed: vital signs, nurses notes, lab test result(s), radiologic studies. I considered the following discharge prescriptions or medication management in the emergency department Medications were administered in the Emergency Department. See MAR. Care significantly affected by the following Social Determinants of Health: Poor access to healthcare and/or lack of insurance, Poor access to transportation, Problems related to employment. Counseling: I had a detailed discussion with the patient and/or guardian regarding the historical points, exam findings, and any diagnostic results supporting the discharge/admit diagnosis, the presence of at least one elevated blood pressure reading (>120/80) during this emergency department visit, lab results, radiology results, the need for outpatient follow up, for definitive care, a family practitioner, an OB/Gyne specialist, to return to the emergency department if symptoms worsen or persist or if there are any questions or concerns that arise at home. ED course: Patient reports her pain is much better. I did confirm to the patient that she was . Recommended OB appointment this week as well as start multivitamin with folic acid. Will treat UTI with antibiotics. Discussed with mining engineering technologist that she did not see any abnormality in adnexa to suggest ectopic. Patient's pain is resolved. Strict ER precautions given for left-sided suprapubic abdominal pain that returns or vaginal bleeding. All questions answered. Labs printed out and given to patient to take to OB.. 01/25 14:15 Order name: CBC with Diff; Complete Time: 15:20 [facility] 01/25 14:15 Order name: CMP; Complete Time: 15:47 [facility] 01/25 14:15 Order name: Lipase; Complete Time: 15:47 [facility] 01/25 14:15 Order name: Test, Urine; Complete Time: 15:25 [facility] 01/25 14:15 Order name: UA W/ Microscopic; Complete Time: 15:20 [facility] 01/25 15:26 Order name: HCG-Quantitative; Complete Time: 15:56 [facility] 01/25 14:15 Order name: Transvaginal Study (probe); Complete Time: 15:20 [facility] 01/25 14:15 Order name: IV Saline Lock; Complete Time: 14:18 [facility] 01/25 14:15 Order name: Labs collected and sent; Complete Time: 14:18 dr5 Administered Medications: 14:30 Drug: NS 0.9% IV 1000 ml IV at 1 bolus Per protocol; to be given as a bolus over 60 db minutes Route: IV; Rate: 1 bolus; Site: right antecubital; 16:01 Follow up: Response: No adverse reaction; IV Status: Completed infusion; IV Intake: db 1000ml 14:36 Drug: Ondansetron IVP 4 mg IVP once; over 2 minutes Route: IVP; Site: right antecubital;db 16:02 Follow up: Response: No adverse reaction db 14:36 Drug: HYDROcodone-acetaminophen PO 5 mg-325 mg 2 tabs PO once Route: PO; db 16:01 Follow up: Response: No adverse reaction db 15:48 Not Given (Pos ): TORadol - [id number] mg IVP once dr5 Disposition Summary: 01/25/25 16:37 Discharge Ordered Notes: Location: Home dr5 Condition: Stable dr5 Diagnosis - Weeks of gestation of , unspecified or less than 10 weeks dr5 Followup: dr5 - With: Emergency Department - When: As needed - Reason: Worsening of condition Followup: dr5 - With: Private Physician - When: 1 - 2 days - Reason: Recheck today's complaints, Continuance of care, Re-evaluation by your physician Discharge Instructions: - Discharge Summary Sheet dr5 - Urinary Tract Infection, Adult dr5 - First Trimester of dr5 Forms: - Medication Reconciliation Form dr5 - Antibiotic Education dr5 - Patient Portal Instructions dr5 - Leadership Thank You Letter dr5 Prescriptions: - Cephalexin 500 mg Oral Capsule - take 1 capsule ORAL route every 12 hours for 10 days; 20 capsule; Refills: 0, dr5 Product Selection Permitted Signatures: Dispatcher [employer] Lynn Rosales, RN RN ll1 Alexandria De La Torre RN RN db Pop Hernandez, BROADCAST NEWS PRODUCER-C BROADCAST NEWS PRODUCER-Cdr5 Corrections: (The following items were deleted from the chart) 14:16 14:16 CBC+H.LAB.BRZ ordered. EDMS EDMS 14:16 14:16 COMPREHENSIVE METABOLIC PANEL+C.LAB.BRZ ordered. EDMS EDMS 14:16 14:16 LIPASE+C.LAB.BRZ ordered. EDMS EDMS 14:16 14:16 Test, Urine+UC.LAB.BRZ ordered. EDMS EDMS 14:16 14:16 UA W/ Microscopic+U.LAB.BRZ ordered. EDMS EDMS 14:16 14:16 Abdomen Pelvis W Con+CT.RAD.BRZ ordered. EDMS EDMS 15:58 15:50 Transvaginal Ob+US.RAD.BRZ ordered. EDMS EDMS
[2025-01-25 17:08] VITALS: O2SAT 99
[2025-01-25 17:14] VITALS: BP 113/77
== END 2025-01-25 16:49 | disposition home or self-care (01) ==
LOC: ER 13:45
DX: O26.891 Other specified pregnancy related conditions, first trimester (principal); Z3A.09 9 weeks gestation of pregnancy
CPT/HCPCS: 36415; 76830; 80053; 81001; 81025; 83690; 84702; 85025; 96361; 96374; 99284; J2405; J7030

== ENCOUNTER 2025-02-01 14:56 | Emergency (ER) | payer SELFPAY ==
[2025-02-01 16:10] LABS: Specific Gravity 1.011 (1.005-1.030)
--- NOTE | 2025-02-01 16:14 | RAD REPORT ---
EXAM: Transvaginal OB HISTORY: VAGINAL BLEEDING COMPARISON: None TECHNIQUE: Multiple grayscale and color Doppler images were obtained in a transvaginal pelvic ultraso und. Spectral analysis of the Doppler waveforms of the ovaries were performed. FINDINGS: UTERUS: No IUP identified. Small nonspecific cystic foci present at the endometrium. No free fluid is seen in the pelvis. RIGHT OVARY: Normal flow without abnormal mass. LEFT OVARY: Normal flow without abnormal mass. IMPRESSION: No IUP identified. Therefore, cannot exclude early normal first trimester , fail ed first trimester , or early ectopic. Recommend correlation with beta hCG and consider short-term follow-up ultrasound.
[2025-02-01 16:29] LABS: Absolute Eosinophils 0.1 K/uL (0-0.5); Absolute Lymphocytes (CBC) 2.5 K/uL (0.7-4.9); Absolute Monocytes 0.6 K/uL (0.1-1.3); Absolute Neutrophil 4.1 K/uL (1.8-8.0); Basophils % 0.6 % (0-1.3); Hematocrit 33.8 % (36.0-45.0); Hemoglobin 11.5 g/dL (12.0-15.0); Lymphocytes % 34.5 % (15.3-44.8); MCH 28.3 pg (27.0-35.0); MCHC 34.1 g/dL (32.0-36.0); MCV 82.9 fL (80-100); MPV 8.9 fL (7.6-11.3); Monocytes % 8.2 % (3.3-12.3); Neutrophils % 55.7 % (41.7-73.7); Nucleated Red Blood Cells % 0.1 % (0-0); Platelets 288 thou/uL (152-406); RBC Red Blood Cell Count 4.08 M/uL (3.86-4.86); Red Cell Distribution Width 15.6 % (12.1-15.2)
[2025-02-01 16:56] LABS: Anion Gap 7.6 mEq/L (5.0-15.0); Potassium 3.6 mEq/L (3.5-5.1)
--- NOTE | 2025-02-01 17:24 | EDPHYS ---
Physician Documentation [facility] [place] Name: Shani Villafana Age: 24 yrs Sex: Female : 2000 Arrival Date: 02/01/2025 Time: 14:56 Bed 6 Private MD: ED Physician Garo Donahue HPI: 02/01 18:31 This 24 yrs old Female presents to ER via Ambulatory with complaints of dr5 Vaginal Bleeding, preg. 18:31 The patient presents with vaginal bleeding that is light, spotting, with clots. Patient dr5 is a 24 old female G1, P0 coming in with vaginal bleeding with small mild clots and intermittent pain to suprapubic area. Patient has not seen OB yet since last visit due to insurance reasons. Patient denies fever, nausea or vomiting. 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 - Infectious Disease History:: Denies. - Social history:: Smoking status: Patient/guardian denies using tobacco, Stopped _ months ago 1. ROS: 18:31 Constitutional: as per hpi dr5 Exam: 18:31 Constitutional: This is a well developed, well nourished patient who is awake, alert, dr5 and in no acute distress. Head/Face: Normocephalic, atraumatic. Eyes: Pupils equal round and reactive to light, extra-ocular motions intact. Lids and lashes normal. Conjunctiva and sclera are non-icteric and not injected. Cornea within normal limits. Periorbital areas with no swelling, redness, or edema. Neck: Trachea midline, no thyromegaly or masses palpated, and no cervical lymphadenopathy. Supple, full range of motion without nuchal rigidity, or vertebral point tenderness. No Meningismus. Chest/axilla: Normal chest wall appearance and motion. Nontender with no deformity. No lesions are appreciated. Cardiovascular: Regular rate and rhythm with a normal S1 and S2. Normal PMI, no JVD. No pulse deficits. Respiratory: Lungs have equal breath sounds bilaterally, clear to auscultation. No rales, rhonchi or wheezes noted. No increased work of breathing, no retractions or nasal flaring. Back: No spinal tenderness. No costovertebral tenderness. Full range of motion. Skin: Warm, dry with normal turgor. Normal color with no rashes, no lesions, and no evidence of cellulitis. MS/ Extremity: Pulses equal, no cyanosis. Neurovascular intact. Full, normal range of motion. Neuro: Awake and alert, GCS 15, oriented to person, place, time, and situation. Cranial nerves II-XII grossly intact. Motor strength 5/5 in all extremities. Sensory grossly intact. Cerebellar exam normal. Normal gait. Vital Signs: 15:29 BP 122 / 67; Pulse 67; Resp 15; Temp 98.3; Pulse Ox 100% ; Weight 56.25 kg; Height 5 me1 ft. 4 in. ; Pain 0/10; 17:37 BP 119 / 71; Pulse 72; Resp 15; Pulse Ox 100% ; bp 15:29 Body Mass Index 21.28 (56.25 kg, 162.56 cm) me1 15:29 Pain Scale: Adult me1 MDM: 15:13 Medical Screening Exam initiated dr5 18:31 Differential diagnosis: abruptio placentae, molar preganancy. Data reviewed: vital dr5 signs, nurses notes, lab test result(s). Historians other than the Patient: Spouse/Significant Other: Sig. Other. Care significantly affected by the following Social Determinants of Health: Poor access to healthcare and/or lack of insurance, Poor access to transportation, Problems related to employment. Counseling: I had a detailed discussion with the patient and/or guardian regarding the historical points, exam findings, and any diagnostic results supporting the discharge/admit diagnosis, the presence of at least one elevated blood pressure reading (>120/80) during this emergency department visit, lab results, radiology results, the need for outpatient follow up, for definitive care, a family practitioner, an OB/Gyne specialist, to return to the emergency department if symptoms worsen or persist or if there are any questions or concerns that arise at home. ED course: Patient denies any pain during ER stay. Concerns for possible miscarriage. No evidence of IUP noted on ultrasound. Will have patient return in 48 hours for repeat hCG and ultrasound to ensure ectopic is not occurring. All questions answered. Patient is not in pain on discharge.. 02/01 15:17 Order name: Abo/rh Typing; Complete Time: 17:14 [facility] 02/01 15:17 Order name: Basic Metabolic Panel; Complete Time: 17:02 [facility] 02/01 15:17 Order name: CBC with Diff; Complete Time: 16:36 [facility] 02/01 15:17 Order name: Test, Urine; Complete Time: 16:16 dr5 02/01 15:17 Order name: Quantitative Hcg; Complete Time: 17:02 [facility] 02/01 15:17 Order name: US Transvaginal Ob; Complete Time: 16:16 dr5 02/01 15:17 Order name: IV Saline Lock; Complete Time: 16:15 dr5 02/01 15:17 Order name: Labs collected and sent; Complete Time: 16:15 [facility] 02/01 15:17 Order name: NPO; Complete Time: 16:15 dr5 Administered Medications: No medications were administered Disposition Summary: 02/01/25 17:23 Discharge Ordered Notes: Location: Home dr5 Condition: Stable dr5 Diagnosis - Threatened dr5 Followup: dr5 - With: Emergency Department - When: As needed - Reason: Worsening of condition Followup: dr5 - With: Private Physician - When: 48 Hours - Reason: Recheck today's complaints, Continuance of care, Re-evaluation by your physician Discharge Instructions: - Discharge Summary Sheet dr5 - Threatened Miscarriage dr5 Forms: - Medication Reconciliation Form dr5 - Patient Portal Instructions dr5 - Leadership Thank You Letter dr5 Addendum: 02/03/2025 19:19 Co-signature as Attending Physician, Garo Donahue MD I agree with the assessment and c crouch plan of care. Signatures: Dispatcher [employer] Garo Silva MD MD cha Eddleman, Michelle, AYESHA RN me1 Pop Hernandez, CORRUGATOR OPERATOR-C CORRUGATOR OPERATOR-Cdr5 Corrections: (The following items were deleted from the chart) 02/01 15:18 15:17 ABO/RH TYPING+BB.LAB.BRZ ordered. EDMS EDMS 15:18 15:17 BASIC METABOLIC PANEL+C.LAB.BRZ ordered. EDMS EDMS 15:18 15:17 CBC+H.LAB.BRZ ordered. EDMS EDMS 15:18 15:17 Test, Urine+UC.LAB.BRZ ordered. EDMS EDMS 15:18 15:17 QUANTITATIVE HCG+C.LAB.BRZ ordered. EDMS EDMS
--- NOTE | 2025-02-01 17:24 | ER ---
Nurse's Notes [facility] Name: Shani Villafana Age: 24 yrs Sex: Female : 2000 Arrival Date: 02/01/2025 Time: 14:56 Bed 6 Private MD: Diagnosis: Threatened Presentation: 02/01 15:29 Chief complaint: Patient states: <10 weeks , started having vaginal bleeding me1 yesterday, about like a normal period. Denies pain. LMP in the end of November 2024. Coronavirus screen: Vaccine status: Patient reports being unvaccinated. Ebola Screen: No symptoms or risks identified at this time. Initial Sepsis Screen: Does the patient meet any 2 criteria? No. Patient's initial sepsis screen is negative. Does the patient have a suspected source of infection? No. Patient's initial sepsis screen is negative. Risk Assessment: Do you want to hurt yourself or someone else? Patient reports no desire to harm self or others. Onset of symptoms was January 31, 2025. 15:29 Method Of Arrival: Amb[place] [facility] [place] 15:29 Acuity: ЕКАТЕРИНА 3 me1 Triage Assessment: 15:30 General: Appears in no apparent distress. comfortable. General: Behavior is calm, bp cooperative, appropriate for age. Pain: Denies pain. EENT: No deficits noted. Neuro: No deficits noted. Cardiovascular: No deficits noted. Respiratory: No deficits noted. GI: No signs and/or symptoms were reported involving the gastrointestinal system. : Reports vaginal bleeding that is spotty. Derm: No deficits noted. Musculoskeletal: No deficits noted. 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 - Infectious Disease History:: Denies. - Social history:: Smoking status: Patient/guardian denies using tobacco, Stopped _ months ago 1. Screenin:32 [facility] ED Fall Risk Assessment (Adult) History of falling in the last 3 months, dd2 including since admission No falls in past 3 months (0 pts) Confusion or Disorientation No (0 pts) Intoxicated or Sedated No (0 pts) Impaired Gait No (0 pts) Mobility Assist Device Used No (0 pt) Altered Elimination No (0 pt) Score/Fall Risk Level 0 - 2 = Low Risk Oriented to surroundings, Maintained a safe environment, Educated pt \T\ family on fall prevention, incl call for assistance when getting out of bed, Assessed \T\ reinforced patient's understanding of fall precautions, Hourly rounding (assess needs \T\ fall precautionary measures) done. Abuse screen: Denies threats or abuse. Denies injuries from another. Nutritional screening: No deficits noted. Tuberculosis screening: No symptoms or risk factors identified. Assessment: 15:35 General: Appears in no apparent distress. comfortable, Behavior is calm, cooperative, bp appropriate for age. 17:37 : Vaginal discharge is bloody. bp Vital Signs: 15:29 BP 122 / 67; Pulse 67; Resp 15; Temp 98.3; Pulse Ox 100% ; Weight 56.25 kg; Height 5 me1 ft. 4 in. ; Pain 0/10; 17:37 BP 119 / 71; Pulse 72; Resp 15; Pulse Ox 100% ; bp 15:29 Body Mass Index 21.28 (56.25 kg, 162.56 cm) me1 15:29 Pain Scale: Adult me1 ED Course: 15:00 Patient arrived in ED. ts1 15:12 Pop Hernandez FNP-C is PHCP. dr5 15:12 Garo Donahue MD is Attending Physician. dr5 15:32 Triage completed. me1 15:32 Arm band placed on Patient placed in waiting room. me1 15:47 Radiology exam delayed due to test not completed at this time. aa4 16:03 Transvaginal Ob In Process Unspecified. EDMS 16:08 Danyel Jacobs, RN is Primary Nurse. bp 16:15 Initial lab(s) drawn, by nh, sent to lab. Urine collected: clean catch specimen, clear. bp Inserted saline lock: 22 gauge in right forearm, using aseptic technique. Blood collected. Flushed with 10 mL NS. 17:37 Patient has correct armband on for positive identification. bp 17:37 No provider procedures requiring assistance completed. IV discontinued, intact, bp bleeding controlled, No redness/swelling at site. Pressure dressing applied. 17:45 Provided Education on: D/C AND F/U EDUCATION. dd2 Administered Medications: No medications were administered Medication: 17:32 VIS not applicable for this client. dd2 Outcome: 17:23 Discharge ordered by . no 17:37 Discharged to home ambulatory, with family, bp 17:37 Condition: stable 17:37 Discharge instructions given to patient, Instructed on discharge instructions, follow up and referral plans. Demonstrated understanding of instructions, follow-up care, 17:46 Patient left the ED. dd2 Signatures: Dispatcher [employer] EDMS Laurita Diaz aa4 Danyel Jacobs, RN RN bp Nemo Madsen, LAUREANO PAS ts1 Bev Torres RN RN me1 ARMANI ARCHIBALD RN RN dd2 Pop Hernandez, PROOFER-C PROOFER-Cdr5
[2025-02-01 18:03] VITALS: TEMP 98.3; O2SAT 100
[2025-02-01 18:04] VITALS: BP 119/71
== END 2025-02-01 17:46 | disposition home or self-care (01) ==
LOC: ER 14:56
DX: O20.0 Threatened abortion (principal)
CPT/HCPCS: 36415; 76817; 80048; 81025; 84702; 85025; 86900; 86901; 99283

== ENCOUNTER 2025-06-23 19:01 | Emergency (ER) | payer OTHER ==
[2025-06-23] MEDS ORDERED: ACETAMINOPHEN 325 MG TABLET ONE (19:18)
[2025-06-23 19:42] LABS: Influenza A Ag Negative; Influenza B Ag Negative; SARS-CoV-2 Antigen Rapid Res Negative (Negative)
--- NOTE | 2025-06-23 19:43 | ER ---
Nurse's Notes [facility] Name: Shani Villafana Age: 24 yrs Sex: Female : 2000 Arrival Date: 06/23/2025 Time: 19:01 Bed 10 Private MD: Diagnosis: Acute upper respiratory infection, unspecified Presentation: 06/23 19:22 Chief complaint: Patient states: headache, cough congestion hot flashes and sore throat bm8 for two days. Coronavirus screen: Vaccine status: Patient reports being unvaccinated. Ebola Screen: Patient negative for fever greater than or equal to 101.5 degrees Fahrenheit, and additional compatible Ebola Virus Disease symptoms Patient denies exposure to infectious person. Patient denies travel to an Ebola-affected area in the 21 days before illness onset. No symptoms or risks identified at this time. Initial Sepsis Screen: Does the patient meet any 2 criteria? No. Patient's initial sepsis screen is negative. Does the patient have a suspected source of infection? No. Patient's initial sepsis screen is negative. Risk Assessment: Do you want to hurt yourself or someone else? Patient reports no desire to harm self or others. Onset of symptoms was June 20, 2025. 19:22 Method Of Arrival: Ambulatory bm8 19:22 Acuity: ЕКАТЕРИНА 4 bm8 Triage Assessment: 19:23 General: Appears in no apparent distress. comfortable, Behavior is calm, cooperative, bm8 appropriate for age. Pain: Complains of pain in throat, head Pain currently is 7 out of 10 on a pain scale. Quality of pain is described as burning, aching. EENT: Throat is reddened Reports nasal congestion. Neuro: No deficits noted. Level of Consciousness is awake, alert, obeys commands, Oriented to person, place, time, situation, Appropriate for age. Cardiovascular: Capillary refill < 3 seconds in bilateral fingers. Respiratory: Airway is patent Respiratory effort is even, unlabored, Respiratory pattern is regular, symmetrical, Breath sounds are clear bilaterally. GI: No signs and/or symptoms were reported involving the gastrointestinal system. : No signs and/or symptoms were reported regarding the genitourinary system. Derm: No signs and/or symptoms reported regarding the dermatologic system. Musculoskeletal: No signs and/or symptoms reported regarding the musculoskeletal system. 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 - Infectious Disease History:: Denies. - Social history:: Smoking status: Reported history of juuling and/or vaping. Patient/guardian denies using alcohol, street drugs. Screenin:25 [facility] ED Fall Risk Assessment (Adult) History of falling in the last 3 months, bm8 including since admission No falls in past 3 months (0 pts) Confusion or Disorientation No (0 pts) Intoxicated or Sedated No (0 pts) Impaired Gait No (0 pts) Mobility Assist Device Used No (0 pt) Altered Elimination No (0 pt) Score/Fall Risk Level 0 - 2 = Low Risk Oriented to surroundings, Maintained a safe environment, Educated pt \T\ family on fall prevention, incl call for assistance when getting out of bed, Assessed \T\ reinforced patient's understanding of fall precautions, Hourly rounding (assess needs \T\ fall precautionary measures) done, Used ambulatory aids as needed (educated on \T\ assisted with), Used gait belt as appropriate. Abuse screen: Denies threats or abuse. Nutritional screening: No deficits noted. Tuberculosis screening: No symptoms or risk factors identified. Assessment: 19:25 Reassessment: see triage assessment. bm8 19:47 Reassessment: Patient appears in no apparent distress at this time. No changes from bm8 previously documented assessment. Patient and/or family updated on plan of care and expected duration. Pain level reassessed. Patient is alert, oriented x 3, equal unlabored respirations, skin warm/dry/pink. Vital Signs: 19:22 BP 124 / 87; Pulse 84; Resp 17; Temp 98.7; Pulse Ox 100% ; Weight 55.79 kg; Height 5 bm8 ft. 4 in. ; Pain 7/10; 19:47 BP 114 / 76; Pulse 78; Resp 17; Temp 98.7; Pulse Ox 100% ; Pain 7/10; bm8 19:22 Body Mass Index 21.11 (55.79 kg, 162.56 cm) bm8 19:22 Pain Scale: Adult bm8 19:47 Pain Scale: Adult bm8 Zaheer Coma Score: 19:25 Eye Response: spontaneous(4). Motor Response: obeys commands(6). Verbal Response: bm8 oriented(5). Total: 15. 19:47 Eye Response: spontaneous(4). Motor Response: obeys commands(6). Verbal Response: bm8 oriented(5). Total: 15. ED Course: 19:03 Patient arrived in ED. im 19:04 Lara Sullivan FNP-C is [facility]. kb 19:04 Juan Spears MD is Attending Physician. kb 19:22 Osorio Mcdonough, RN is Primary Nurse. bm8 19:23 Triage completed. bm8 19:23 Arm band placed on right wrist. bm8 19:25 Patient has correct armband on for positive identification. Bed in low position. Call bm8 light in reach. Side rails up X 1. Client placed on continuous cardiac and pulse oximetry monitoring. NIBP monitoring applied. Pulse ox on. NIBP on. Door closed. Noise minimized. Pillow given. Verbal reassurance given. Head of bed elevated. 19:25 No provider procedures requiring assistance completed. COVID swab sent to lab. Flu bm8 and/or RSV swab sent to lab. Strep swab sent to lab. Patient maintains SpO2 saturation greater than 95% on room air. 19:48 Provided Education on: post er care. bm8 19:48 Patient did not have IV access during this emergency room visit. bm8 Administered Medications: 19:48 Drug: Tylenol 325 mg PO once Route: PO; bm8 19:48 Follow up: Response: No adverse reaction bm8 Medication: 19:25 VIS not applicable for this client. bm8 Outcome: 19:43 Discharge ordered by . kb 19:48 Discharged to home ambulatory, bm8 19:48 Condition: stable 19:48 Discharge instructions given to patient, family, Instructed on discharge instructions, follow up and referral plans. no drinking with medication, no driving heavy equipment, medication usage, safety practices, Demonstrated understanding of instructions, follow-up care, medications, 20:28 Patient left the ED. br2 Signatures: Lara Sullivan FNP-C FNP-Trina Thacker Osorio Mcdonough, RN RN bm8 Rosalind Guzman RN RN br2
--- NOTE | 2025-06-23 19:43 | EDPHYS ---
Physician Documentation [facility] Name: Shani Villafana Age: 24 yrs Sex: Female : 2000 Arrival Date: 06/23/2025 Time: 19:01 Bed 10 Private MD: ED Physician Juan Spears HPI: 06/23 19:22 This 24 yrs old Female presents to ER via Unassigned with complaints of Flu Symptoms. kb 19:22 Pt is a 24 year old female who presents for cough, congestion, hoarse voice and sore kb throat for 2 days. denies fever, chills, bodyaches. . 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 - Infectious Disease History:: Denies. - Social history:: Smoking status: Reported history of juuling and/or vaping. Patient/guardian denies using alcohol, street drugs. ROS: 19:23 Constitutional: As per HPI kb Exam: 19:23 Constitutional: This is a well developed, well nourished patient who is awake, alert, kb and in no acute distress. Head/Face: Normocephalic, atraumatic. ENT: Moist Mucous membranes Cardiovascular: Regular rate Respiratory: Respirations even and unlabored. No increased work of breathing. Talking in full sentences Skin: Warm, dry with normal turgor. Normal color. MS/ Extremity: Pulses equal, no cyanosis. Neurovascular intact. Full, normal range of motion. Neuro: Awake and alert, GCS 15, oriented to person, place, time, and situation. 19:23 ENT: Ear canal(s): are normal, TM's: are normal, Posterior pharynx: is normal, Vital Signs: 19:22 BP 124 / 87; Pulse 84; Resp 17; Temp 98.7; Pulse Ox 100% ; Weight 55.79 kg; Height 5 bm8 ft. 4 in. ; Pain 7/10; 19:47 BP 114 / 76; Pulse 78; Resp 17; Temp 98.7; Pulse Ox 100% ; Pain 7/10; bm8 19:22 Body Mass Index 21.11 (55.79 kg, 162.56 cm) bm8 19:22 Pain Scale: Adult bm8 19:47 Pain Scale: Adult bm8 Zaheer Coma Score: 19:25 Eye Response: spontaneous(4). Motor Response: obeys commands(6). Verbal Response: bm8 oriented(5). Total: 15. 19:47 Eye Response: spontaneous(4). Motor Response: obeys commands(6). Verbal Response: bm8 oriented(5). Total: 15. MDM: 19:04 Medical Screening Exam initiated 19:23 Differential diagnosis: flu, covid, sinusitis, laryngitis, strep. Data reviewed: vital kb signs, nurses notes. 19:41 I considered the following discharge prescriptions or medication management in the emergency department I discussed and recommended Over The Counter medications, Antibiotics: At this time antibiotics are not recommended. Counseling: I had a detailed discussion with the patient and/or guardian regarding the historical points, exam findings, and any diagnostic results supporting the discharge/admit diagnosis, lab results, the need for outpatient follow up, a family practitioner, to return to the emergency department if symptoms worsen or persist or if there are any questions or concerns that arise at home. 06/23 19:13 Order name: Group A Streptococcus Rapid; Complete Time: 19:35 kb 06/23 19:13 Order name: COVID-19 Ag + Flu A+B Ag; Complete Time: 19:43 kb 06/23 19:35 Order name: Throat Culture EDMS Administered Medications: 19:48 Drug: Tylenol 325 mg PO once Route: PO; 8 19:48 Follow up: Response: No adverse reaction bm8 Disposition: 06/24 06:58 Co-signature as Attending Physician, Juan Spears MD I reviewed the patient's care rn provided by the Advanced Practice Provider and agree with the diagnosis and treatment plan. Disposition Summary: 06/23/25 19:43 Discharge Ordered Notes: Location: Home Condition: Stable Diagnosis - Acute upper respiratory infection, unspecified kb Followup: - With: Emergency Department - When: As needed - Reason: Worsening of condition Followup: kb - With: Private Physician - When: 2 - 3 days - Reason: Recheck today's complaints, Continuance of care, Re-evaluation by your physician Discharge Instructions: - Discharge Summary Sheet kb - Upper Respiratory Infection, Adult, [id number] kb - Viral Respiratory Infection, [id number] kb Forms: - Medication Reconciliation Form kb - Antibiotic Education kb - Prescription Opioid Use kb - Patient Portal Instructions kb - Leadership Thank You Letter kb Signatures: Dispatcher [employer] EDMS Lara Sullivan, ASSISTANT PROPERTY MANAGER-C ASSISTANT PROPERTY MANAGER-Ckb Juan Spears MD MD rn McDonald, Brad, RN RN bm8 Corrections: (The following items were deleted from the chart) 06/23 19:13 19:13 Group A Streptococcus Rapid [id number] ordered. EDMS EDMS 19:13 19:13 COVID-19 Ag + Flu A+B [id number].LAB.[id number] ordered. EDMS EDMS
[2025-06-24 04:52] VITALS: TEMP 98.7; O2SAT 100
[2025-06-24 04:54] VITALS: BP 114/76
== END 2025-06-23 20:28 | disposition home or self-care (01) ==
LOC: ER 19:01
DX: J06.9 Acute upper respiratory infection, unspecified (principal); Z11.52 Encounter for screening for COVID-19
CPT/HCPCS: 36415; 87070; 87428; 99284